=== PATIENT | female | born 1960 | race African-American/Black ===

== ENCOUNTER 2016-12-02 17:53 | Emergency (ER) | payer MEDICAID ==
[~2016-12-02] VITALS: Ht 162.6 cm; Wt 111.0 kg
[~2016-12-02 17:53] MED LIST: CALC260T6 PO; GLYB2.5 PO; HYDR-3965 PO; IPRA3AMP4 IH; IPRA4AER IH; LISI-662 PO; MOME13HF IH; MONT10TA21 PO; OMEP20 PO; PRED20 PO; THEO200T39 PO
[2016-12-02] MEDS ORDERED: PredniSONE 20 MG TABLET PO ONE (22:30)
[2016-12-02] MEDS ORDERED: IPRATROPIUM BROMIDE 0.5 MG/2.5 ML NEB SOLUTION NEB ONE (22:30)
[2016-12-02] MEDS ORDERED: ALBUTEROL SULFATE 2.5 MG/0.5 ML NEB SOLUTION NEB ONE (22:30)
[2016-12-02 23:45] VITALS: BP 147/73
[2016-12-03] MEDS ORDERED: ALBUTEROL SULFATE HFA 90 MCG/PUFF 8 GM INHALER IH ONE
[2016-12-03 09:36] LABS: GLUCOSE,POINT OF CARE 117 MG/DL (70-110)
== END 2016-12-03 00:11 | disposition home or self-care (01) ==
LOC: EMS 22:04
DX: J45.901 Unspecified asthma with (acute) exacerbation (principal); J18.9 Pneumonia, unspecified organism; M25.552 Pain in left hip; J44.9 Chronic obstructive pulmonary disease, unspecified; I11.0 Hypertensive heart disease with heart failure; I50.9 Heart failure, unspecified; E11.9 Type 2 diabetes mellitus without complications
CPT/HCPCS: 71010; 73503; 82962; 93005; 94640; 99284; J7512; J7613; J3535

== ENCOUNTER 2017-03-16 18:40 | Inpatient (IN) | payer MEDICAID ==
[~2017-03-16] VITALS: Ht 162.6 cm; Wt 99.0 kg
[~2017-03-16 18:40] MED LIST changes: -PRED20 PO
[2017-03-16 19:02] LABS: GLUCOSE,POINT OF CARE 119 MG/DL (70-110)
[2017-03-16 20:32] LABS: BASOPHILS % (AUTO) 0.3 % (0.0-2.0); EOSINOPHILS % (AUTO) 0.2 % (1.0-6.0); HEMATOCRIT 38.8 % (36-46); HEMOGLOBIN 12.2 g/dL (12.0-16.0); LYMPHOCYTES # (AUTO) 2.3 K/uL (1.0-4.8); LYMPHOCYTES % (AUTO) 9.9 % (22.0-44.0); MEAN CORPUSCULAR HEMOGLOBIN 26.8 pg (26.0-34.0); MEAN CORPUSCULAR HGB CONC 31.5 G/dL (31.0-37.0); MEAN CORPUSCULAR VOLUME 85 fL (80-100); MONOCYTES # (AUTO) 0.7 K/uL (0.1-1.0); NEUTROPHILS # (AUTO) 20.4 K/uL (1.8-7.7); PLATELET COUNT (AUTO) 361 K/uL (150-450); RED BLOOD CELL COUNT(AUTO) 4.56 MIL/uL (4.00-5.20); RED CELL DISTRIBUTION WIDTH 14.8 % (11.5-14.5); WHITE BLOOD COUNT (AUTO) 23.6 K/uL (4.5-11.0)
[2017-03-16 20:44] LABS: CALCIUM, TOTAL 9.8 mg/dL (8.8-10.5); CREATININE 1.37 mg/dL (0.60-1.30); NEUTROPHILS % (AUTO) 86.6 % (40.0-70.0); POTASSIUM 3.4 mmol/L (3.5-5.1)
[2017-03-16 20:51] LABS: ALBUMIN 3.8 g/dL (3.4-5.0); BILIRUBIN,TOTAL 1.5 mg/dL (0.1-1.0); TOTAL PROTEIN, SERUM 8.1 g/dL (6.4-8.2)
[2017-03-16] MEDS ORDERED: ALBUTEROL SULFATE 2.5 MG/0.5 ML NEB SOLUTION NEB ONE (22:45)
[2017-03-16] MEDS ORDERED: IPRATROPIUM BROMIDE 0.5 MG/2.5 ML NEB SOLUTION NEB ONE ×2 (22:45→23:15)
[2017-03-16 22:47] LABS: APPEARANCE,URINE CLOUDY (CLEAR); GLUCOSE, URINE (UA) NEGATIVE (NEGATIVE); KETONES,URINE NEGATIVE (NEGATIVE); LEUKOCYTE ESTERASE ,URINE TRACE (NEGATIVE); OCCULT BLOOD,URINE NEGATIVE (NEGATIVE); PROTEIN,URINE NEGATIVE (NEGATIVE)
[2017-03-16] MEDS ORDERED: PredniSONE 20 MG TABLET PO ONE (23:00)
[2017-03-16] MEDS ORDERED: CefTRIAXone 1 GM/DEXTROSE 50 ML IV ONE (23:00)
[2017-03-16] MEDS ORDERED: AZITHROMYCIN 500 MG/NS 250 ML IV ONE (23:00)
[2017-03-16 23:05] LABS: RBC,URINE 0-2 /HPF (0-2)
[2017-03-16 23:06] LABS: SQUAMOUS EPITHELIAL CELL,UR Many /LPF (None Seen)
[2017-03-16] MEDS ORDERED: 0.9% SODIUM CHLORIDE 5 ML NEB SOLUTION NEB ONE (23:13)
[2017-03-16] MEDS ORDERED: 0.9% SODIUM CHLORIDE 10 ML SYRINGE IVP PRN (23:15)
[2017-03-16] MEDS ORDERED: ALBUTEROL SULFATE 5 MG/ML 20 ML NEB SOLN [BULK] NEB ONE (23:15)
[2017-03-16] MEDS ORDERED: ACETAMINOPHEN 325 MG TABLET PO PRN (23:15)
[2017-03-17] VITALS (8 sets, daily range): BP systolic 113–147; BP diastolic 50–80
[2017-03-17] MEDS ORDERED: ALBUTEROL SULFATE 2.5 MG/0.5 ML NEB SOLUTION NEB SCH (03:00)
[2017-03-17] MEDS ORDERED: IPRATROPIUM BROMIDE 0.5 MG/2.5 ML NEB SOLUTION NEB SCH (03:00)
[2017-03-17] MEDS ORDERED: -PHARMACY VACCINE NOTE- MISC ONE ×2 (03:30)
[2017-03-17] MEDS ORDERED: MISC MED-CONVERTED FROM AMBULATORY (Ipratropium/Albuterol Sulfate (Duoneb 2.5-0.5 Mg/3 Ml IH PRN (06:15)
[2017-03-17 06:38] LABS: EOSINOPHILS % (AUTO) 0 % (1.0-6.0); HEMATOCRIT 35.5 % (36-46); LYMPHOCYTES # (AUTO) 0.4 K/uL (1.0-4.8); LYMPHOCYTES % (AUTO) 2.1 % (22.0-44.0); MEAN CORPUSCULAR HEMOGLOBIN 26.6 pg (26.0-34.0); MEAN CORPUSCULAR HGB CONC 30.8 G/dL (31.0-37.0); MEAN CORPUSCULAR VOLUME 86 fL (80-100); MONOCYTES # (AUTO) 0.2 K/uL (0.1-1.0); MONOCYTES % (AUTO) 0.9 % (2.0-9.0); NEUTROPHILS # (AUTO) 20.1 K/uL (1.8-7.7); PLATELET COUNT (AUTO) 347 K/uL (150-450); RED BLOOD CELL COUNT(AUTO) 4.12 MIL/uL (4.00-5.20); RED CELL DISTRIBUTION WIDTH 15.1 % (11.5-14.5); WHITE BLOOD COUNT (AUTO) 20.7 K/uL (4.5-11.0)
[2017-03-17] MEDS ORDERED: IPRATROPIUM BROMIDE 0.5 MG/2.5 ML NEB SOLUTION NEB PRN (06:45)
[2017-03-17] MEDS ORDERED: ALBUTEROL SULFATE 2.5 MG/0.5 ML NEB SOLUTION NEB PRN (06:45)
[2017-03-17] MEDS ORDERED: DEXTROSE 50%-WATER 25 GM/50 ML SYRINGE IVP PRN (07:00)
[2017-03-17 07:09] LABS: ALBUMIN 3.3 g/dL (3.4-5.0); BILIRUBIN,TOTAL 1.1 mg/dL (0.1-1.0); CALCIUM, TOTAL 9.1 mg/dL (8.8-10.5); CREATININE 1.37 mg/dL (0.60-1.30); POTASSIUM 3.4 mmol/L (3.5-5.1); TOTAL PROTEIN, SERUM 7.5 g/dL (6.4-8.2)
[2017-03-17] MEDS: IPRATROPIUM BROMIDE 0.5 MG/2.5 ML NEB SOLUTION NEB SCH ×3 (07:35→20:34)
[2017-03-17] MEDS: ALBUTEROL SULFATE 2.5 MG/0.5 ML NEB SOLUTION NEB SCH ×3 (07:35→20:34)
[2017-03-17] MEDS: OMEPRAZOLE 20 MG CAPSULE PO SCH (08:19)
[2017-03-17] MEDS: MONTELUKAST SODIUM 10 MG TABLET PO SCH (08:19)
[2017-03-17] MEDS: HYDROCODONE/ACETAMINOPHEN 5-325 MG TABLET PO PRN ×3 (08:19→22:18)
[2017-03-17] MEDS: MethylPREDNISolone SOD SUCC 125 MG/2 ML VIAL IVP SCH ×2 (08:19→17:25)
[2017-03-17] MEDS: LISINOPRIL 20 MG TABLET PO SCH (08:19)
[2017-03-17] MEDS: AZITHROMYCIN 250 MG TABLET PO SCH (08:19)
[2017-03-17] MEDS ORDERED: CALCIUM CARBONATE 648 MG TABLET PO SCH (09:00)
[2017-03-17] MEDS ORDERED: PANTOPRAZOLE SODIUM 40 MG DR TABLET PO SCH (09:00)
[2017-03-17] MEDS ORDERED: FORMOTEROL IH SCH (09:00)
[2017-03-17] MEDS ORDERED: MOMETASONE IH SCH (09:00)
[2017-03-17 12:50] LABS: GLUCOSE COMMENT 1 Received Meds; GLUCOSE,POINT OF CARE 235 MG/DL (70-110)
[2017-03-17] MEDS ORDERED: ONDANSETRON HCL 4 MG/2 ML VIAL IVP PRN (13:15)
[2017-03-17] MEDS: INSULIN ASPART 100 UNITS/ML SQ PRN ×3 (13:16→22:22)
[2017-03-17] MEDS ORDERED: POTASSIUM CHLORIDE 20 MEQ ER TABLET PO ONE (16:30)
[2017-03-17] MEDS: CALCIUM CARBONATE 500 MG CHEWABLE TABLET CHEW SCH (22:17)
[2017-03-17] MEDS: CefTRIAXone 1 GM/DEXTROSE 50 ML IV SCH (22:31)
[2017-03-18] MEDS: MethylPREDNISolone SOD SUCC 125 MG/2 ML VIAL IVP SCH ×3 (00:08→17:34)
[2017-03-18 04:00] VITALS: BP 127/68
[2017-03-18 06:14] LABS: EOSINOPHILS % (AUTO) 0 % (1.0-6.0); HEMATOCRIT 34.2 % (36-46); HEMOGLOBIN 10.6 g/dL (12.0-16.0); LYMPHOCYTES # (AUTO) 1.1 K/uL (1.0-4.8); LYMPHOCYTES % (AUTO) 6.5 % (22.0-44.0); MEAN CORPUSCULAR HEMOGLOBIN 26.7 pg (26.0-34.0); MEAN CORPUSCULAR VOLUME 86 fL (80-100); MONOCYTES # (AUTO) 0.3 K/uL (0.1-1.0); MONOCYTES % (AUTO) 1.5 % (2.0-9.0); NEUTROPHILS # (AUTO) 15.9 K/uL (1.8-7.7); PLATELET COUNT (AUTO) 362 K/uL (150-450); RED BLOOD CELL COUNT(AUTO) 3.98 MIL/uL (4.00-5.20); RED CELL DISTRIBUTION WIDTH 15.3 % (11.5-14.5); WHITE BLOOD COUNT (AUTO) 17.3 K/uL (4.5-11.0)
[2017-03-18] MEDS: INSULIN ASPART 100 UNITS/ML SQ PRN ×4 (06:25→21:29)
[2017-03-18 06:31] LABS: ALBUMIN 3.2 g/dL (3.4-5.0); BILIRUBIN,TOTAL 0.3 mg/dL (0.1-1.0); CALCIUM, TOTAL 9.4 mg/dL (8.8-10.5); CREATININE 1.19 mg/dL (0.60-1.30); MAGNESIUM 2.2 mg/dL (1.80-2.40); POTASSIUM 4.8 mmol/L (3.5-5.1); TOTAL PROTEIN, SERUM 7.5 g/dL (6.4-8.2)
[2017-03-18 07:08] VITALS: BP 108/57
[2017-03-18 07:17] LABS: GLUCOSE COMMENT 1 Received Meds; GLUCOSE,POINT OF CARE 188 MG/DL (70-110)
[2017-03-18 07:17] LABS: GLUCOSE COMMENT 1 Received Meds; GLUCOSE,POINT OF CARE 199 MG/DL (70-110)
[2017-03-18 07:17] LABS: GLUCOSE COMMENT 1 Received Meds; GLUCOSE,POINT OF CARE 257 MG/DL (70-110)
[2017-03-18] MEDS: ALBUTEROL SULFATE 2.5 MG/0.5 ML NEB SOLUTION NEB SCH ×3 (09:00→20:12)
[2017-03-18] MEDS: IPRATROPIUM BROMIDE 0.5 MG/2.5 ML NEB SOLUTION NEB SCH ×3 (09:00→20:12)
[2017-03-18] MEDS: OMEPRAZOLE 20 MG CAPSULE PO SCH (09:06)
[2017-03-18] MEDS: AZITHROMYCIN 250 MG TABLET PO SCH (09:06)
[2017-03-18] MEDS: LISINOPRIL 20 MG TABLET PO SCH (09:06)
[2017-03-18] MEDS: MONTELUKAST SODIUM 10 MG TABLET PO SCH (09:06)
[2017-03-18] MEDS: CALCIUM CARBONATE 500 MG CHEWABLE TABLET CHEW SCH ×2 (09:06→21:28)
[2017-03-18] MEDS: HYDROCODONE/ACETAMINOPHEN 5-325 MG TABLET PO PRN ×2 (09:22→21:28)
[2017-03-18 11:53] VITALS: BP 118/52
[2017-03-18 16:52] LABS: GLUCOSE COMMENT 1 Received Meds; GLUCOSE,POINT OF CARE 220 MG/DL (70-110)
[2017-03-18 19:24] VITALS: BP 133/80
[2017-03-18 23:22] VITALS: BP 131/53
[2017-03-19] MEDS: MethylPREDNISolone SOD SUCC 125 MG/2 ML VIAL IVP SCH ×3 (00:17→17:40)
[2017-03-19] MEDS: CefTRIAXone 1 GM/DEXTROSE 50 ML IV SCH ×2 (00:17→20:59)
[2017-03-19 04:30] VITALS: BP 145/84
[2017-03-19] MEDS: HYDROCODONE/ACETAMINOPHEN 5-325 MG TABLET PO PRN ×2 (06:28→20:48)
[2017-03-19] MEDS: INSULIN ASPART 100 UNITS/ML SQ PRN ×4 (06:29→20:55)
[2017-03-19 07:08] VITALS: BP 129/64
[2017-03-19] MEDS: ALBUTEROL SULFATE 2.5 MG/0.5 ML NEB SOLUTION NEB SCH ×3 (08:46→19:27)
[2017-03-19] MEDS: IPRATROPIUM BROMIDE 0.5 MG/2.5 ML NEB SOLUTION NEB SCH ×3 (08:46→19:27)
[2017-03-19] MEDS: OMEPRAZOLE 20 MG CAPSULE PO SCH (08:56)
[2017-03-19] MEDS: AZITHROMYCIN 250 MG TABLET PO SCH (08:56)
[2017-03-19] MEDS: CALCIUM CARBONATE 500 MG CHEWABLE TABLET CHEW SCH ×2 (08:56→20:47)
[2017-03-19] MEDS: MONTELUKAST SODIUM 10 MG TABLET PO SCH (08:56)
[2017-03-19] MEDS: DULoxetine HCL 20 MG CAPSULE PO SCH (08:56)
[2017-03-19] MEDS: LISINOPRIL 20 MG TABLET PO SCH (08:56)
[2017-03-19 11:28] LABS: GLUCOSE COMMENT 1 Received Meds; GLUCOSE,POINT OF CARE 188 MG/DL (70-110)
[2017-03-19 11:28] LABS: GLUCOSE COMMENT 1 Received Meds; GLUCOSE,POINT OF CARE 154 MG/DL (70-110)
[2017-03-19 11:32] LABS: GLUCOSE COMMENT 1 Received Meds; GLUCOSE,POINT OF CARE 214 MG/DL (70-110)
[2017-03-19 11:37] VITALS: BP 132/70
[2017-03-19 15:16] VITALS: BP 140/73
[2017-03-19] MEDS ORDERED: BARIUM SULFATE 0.1% SUSPENSION 450 ML BOTTLE ONE (15:40)
[2017-03-19] MEDS ORDERED: IOVERSOL 350 MG/ML 100 ML VIAL ONE (15:40)
[2017-03-19] MEDS ORDERED: SODIUM CHLORIDE 0.9% 100 ML ONE (15:41)
[2017-03-19 17:12] LABS: GLUCOSE COMMENT 1 Received Meds; GLUCOSE,POINT OF CARE 176 MG/DL (70-110)
[2017-03-19 18:07] LABS: GLUCOSE COMMENT 1 Received Meds; GLUCOSE,POINT OF CARE 177 MG/DL (70-110)
[2017-03-19 19:22] VITALS: BP 137/75
[2017-03-19 23:17] VITALS: BP 153/88
[2017-03-20] MEDS ORDERED: 0.9% SODIUM CHLORIDE 10 ML SYRINGE IVP PRN (00:30)
[2017-03-20] MEDS: HEPARIN SODIUM,PORCINE 5,000 UNITS/ML VIAL SQ SCH ×4 (00:54→22:29)
[2017-03-20] MEDS: MethylPREDNISolone SOD SUCC 125 MG/2 ML VIAL IVP SCH ×2 (00:55→10:44)
[2017-03-20 03:52] LABS: GLUCOSE COMMENT 1 Received Meds; GLUCOSE,POINT OF CARE 205 MG/DL (70-110)
[2017-03-20 04:22] VITALS: BP 151/70
[2017-03-20] MEDS: INSULIN ASPART 100 UNITS/ML SQ PRN ×4 (06:01→20:38)
[2017-03-20 06:23] LABS: BASOPHILS % (AUTO) 0.3 % (0.0-2.0); EOSINOPHILS % (AUTO) 0.1 % (1.0-6.0); HEMATOCRIT 35.4 % (36-46); HEMOGLOBIN 10.8 g/dL (12.0-16.0); LYMPHOCYTES # (AUTO) 1.3 K/uL (1.0-4.8); MEAN CORPUSCULAR HEMOGLOBIN 26.5 pg (26.0-34.0); MEAN CORPUSCULAR HGB CONC 30.6 G/dL (31.0-37.0); MEAN CORPUSCULAR VOLUME 87 fL (80-100); MONOCYTES # (AUTO) 0.1 K/uL (0.1-1.0); NEUTROPHILS # (AUTO) 11.6 K/uL (1.8-7.7); PLATELET COUNT (AUTO) 430 K/uL (150-450); RED BLOOD CELL COUNT(AUTO) 4.08 MIL/uL (4.00-5.20); RED CELL DISTRIBUTION WIDTH 15.4 % (11.5-14.5); WHITE BLOOD COUNT (AUTO) 13.1 K/uL (4.5-11.0)
[2017-03-20 06:37] LABS: ALANINE AMINOTRANSFERASE 23 U/L (12-78); ALBUMIN 3.3 g/dL (3.4-5.0); ANION GAP 9 mmol/L (8-16); ASPARTATE AMINOTRANSFERASE 9 U/L (15-37); BILIRUBIN,TOTAL 0.4 mg/dL (0.1-1.0); CALCIUM, TOTAL 9.5 mg/dL (8.8-10.5); CARBON DIOXIDE 27 mmol/L (22-29); CHLORIDE 102 mmol/L (98-107); CREATININE 0.97 mg/dL (0.60-1.30); GLOMERULAR FILTR. RATE CALC > 60 mL/min (>60); POTASSIUM 4.3 mmol/L (3.5-5.1); SODIUM SERUM 138 mmol/L (136-145); TOTAL PROTEIN, SERUM 7.3 g/dL (6.4-8.2); UREA NITROGEN, BLOOD 22 mg/dL (7-18)
[2017-03-20 06:45] LABS: NEUTROPHILS % (AUTO) 88.6 % (40.0-70.0)
[2017-03-20 07:40] VITALS: BP 141/80
[2017-03-20] MEDS: CALCIUM CARBONATE 500 MG CHEWABLE TABLET CHEW SCH ×2 (08:20→20:30)
[2017-03-20] MEDS: MONTELUKAST SODIUM 10 MG TABLET PO SCH (08:20)
[2017-03-20] MEDS: OMEPRAZOLE 20 MG CAPSULE PO SCH (08:20)
[2017-03-20] MEDS: LISINOPRIL 20 MG TABLET PO SCH (08:20)
[2017-03-20] MEDS: AZITHROMYCIN 250 MG TABLET PO SCH (08:20)
[2017-03-20] MEDS: HYDROCODONE/ACETAMINOPHEN 5-325 MG TABLET PO PRN ×2 (08:26→16:12)
[2017-03-20] MEDS: ALBUTEROL SULFATE 2.5 MG/0.5 ML NEB SOLUTION NEB SCH ×3 (09:08→19:47)
[2017-03-20] MEDS: IPRATROPIUM BROMIDE 0.5 MG/2.5 ML NEB SOLUTION NEB SCH ×3 (09:08→19:47)
[2017-03-20] MEDS: DULoxetine HCL 20 MG CAPSULE PO SCH (10:45)
[2017-03-20 11:19] VITALS: BP 126/67
[2017-03-20 14:33] LABS: GLUCOSE COMMENT 1 Received Meds; GLUCOSE,POINT OF CARE 198 MG/DL (70-110)
[2017-03-20 14:33] LABS: GLUCOSE COMMENT 1 Received Meds; GLUCOSE,POINT OF CARE 195 MG/DL (70-110)
[2017-03-20 15:19] VITALS: BP 136/74
[2017-03-20 19:20] VITALS: BP 134/71
[2017-03-20] MEDS: PredniSONE 20 MG TABLET PO SCH (20:32)
[2017-03-20] MEDS ORDERED: SODIUM CHLORIDE 0.9% 100 ML ONE (20:41)
[2017-03-20 20:52] LABS: GLUCOSE,POINT OF CARE 170 MG/DL (70-110)
[2017-03-20 20:52] LABS: GLUCOSE,POINT OF CARE 276 MG/DL (70-110)
[2017-03-20] MEDS: CefTRIAXone 1 GM/DEXTROSE 50 ML IV SCH (22:22)
[2017-03-20 23:57] VITALS: BP 161/97
[2017-03-21 04:13] VITALS: BP 151/78
[2017-03-21] MEDS: INSULIN ASPART 100 UNITS/ML SQ PRN ×2 (06:08→12:21)
[2017-03-21 07:00] VITALS: BP 152/94
[2017-03-21] MEDS: ALBUTEROL SULFATE 2.5 MG/0.5 ML NEB SOLUTION NEB SCH ×2 (07:49→14:00)
[2017-03-21] MEDS: IPRATROPIUM BROMIDE 0.5 MG/2.5 ML NEB SOLUTION NEB SCH ×2 (07:49→14:00)
[2017-03-21] MEDS: HYDROCODONE/ACETAMINOPHEN 5-325 MG TABLET PO PRN (07:51)
[2017-03-21] MEDS: DULoxetine HCL 20 MG CAPSULE PO SCH (08:25)
[2017-03-21] MEDS: PredniSONE 20 MG TABLET PO SCH (08:25)
[2017-03-21] MEDS: CALCIUM CARBONATE 500 MG CHEWABLE TABLET CHEW SCH (08:25)
[2017-03-21] MEDS: LISINOPRIL 20 MG TABLET PO SCH (08:25)
[2017-03-21] MEDS: AZITHROMYCIN 250 MG TABLET PO SCH (08:25)
[2017-03-21] MEDS: MONTELUKAST SODIUM 10 MG TABLET PO SCH (08:25)
[2017-03-21] MEDS: OMEPRAZOLE 20 MG CAPSULE PO SCH (08:26)
[2017-03-21] MEDS: HEPARIN SODIUM,PORCINE 5,000 UNITS/ML VIAL SQ SCH (08:31)
[2017-03-21 11:06] VITALS: BP 157/85
[2017-03-21 12:07] LABS: GLUCOSE COMMENT 1 Received Meds; GLUCOSE,POINT OF CARE 171 MG/DL (70-110)
[2017-03-21] MEDS ORDERED: DULO20CA30 PO (13:43)
[2017-03-21] MEDS ORDERED: AZIT250T6 PO (13:43)
[2017-03-21] MEDS ORDERED: PRED20 PO (13:50)
[2017-03-21 17:17] LABS: GLUCOSE COMMENT 1 Received Meds; GLUCOSE,POINT OF CARE 164 MG/DL (70-110)
== END 2017-03-21 14:50 | disposition home or self-care (01) | DRG 720 ==
LOC: EMS 18:43 → 5N 03-17 02:06 → UNDOADMIN 03-17 02:24
PROVIDERS: ADMIT Family Medicine; ATTEND Family Medicine
DX: A41.9 Sepsis, unspecified organism (principal); J96.20 Acute and chronic respiratory failure, unspecified whether with hypoxia or hypercapnia; I13.0 Hypertensive heart and chronic kidney disease with heart failure and stage 1 through stage 4 chronic kidney disease, or unspecified chronic kidney disease; J18.9 Pneumonia, unspecified organism; J44.0 Chronic obstructive pulmonary disease with (acute) lower respiratory infection; E11.22 Type 2 diabetes mellitus with diabetic chronic kidney disease; I50.9 Heart failure, unspecified; J45.901 Unspecified asthma with (acute) exacerbation; J44.1 Chronic obstructive pulmonary disease with (acute) exacerbation; N18.9 Chronic kidney disease, unspecified; F31.9 Bipolar disorder, unspecified; F41.9 Anxiety disorder, unspecified; Z79.899 Other long term (current) drug therapy
CPT/HCPCS: 71020; 71260; 72193; 74160; 80307; 82962; 83605; 83735; 87040; 93005; 94640; 94644; 96374; 96375; 99285; J0456; J0696; J1644; J2405; J2930; J7050

== ENCOUNTER 2017-06-02 18:54 | Inpatient (IN) | payer MEDICAID ==
[~2017-06-02] VITALS: Ht 162.6 cm; Wt 91.9 kg
[~2017-06-02 18:54] MED LIST changes: +AZIT250T6 PO; +DULO20CA30 PO; +PRED20 PO
[2017-06-02 19:27] LABS: GLUCOSE,POINT OF CARE 141 MG/DL (70-110)
[2017-06-02] MEDS ORDERED: ALBUTEROL SULFATE 2.5 MG/0.5 ML NEB SOLUTION NEB ONE (19:30)
[2017-06-02] MEDS ORDERED: 0.9% SODIUM CHLORIDE 5 ML NEB SOLUTION NEB ONE (19:32)
[2017-06-02 20:08] LABS: BASOPHILS % (AUTO) 0.4 % (0.0-2.0); EOSINOPHILS % (AUTO) 0.8 % (1.0-6.0); HEMATOCRIT 40.7 % (36-46); HEMOGLOBIN 13.2 g/dL (12.0-16.0); LYMPHOCYTES # (AUTO) 2.6 K/uL (1.0-4.8); LYMPHOCYTES % (AUTO) 24.1 % (22.0-44.0); MEAN CORPUSCULAR HEMOGLOBIN 27.5 pg (26.0-34.0); MEAN CORPUSCULAR HGB CONC 32.3 G/dL (31.0-37.0); MEAN CORPUSCULAR VOLUME 85 fL (80-100); MONOCYTES # (AUTO) 0.6 K/uL (0.1-1.0); MONOCYTES % (AUTO) 5.7 % (2.0-9.0); NEUTROPHILS # (AUTO) 7.4 K/uL (1.8-7.7); PLATELET COUNT (AUTO) 495 K/uL (150-450); RED CELL DISTRIBUTION WIDTH 14.5 % (11.5-14.5); WHITE BLOOD COUNT (AUTO) 10.7 K/uL (4.5-11.0)
[2017-06-02 20:20] LABS: CALCIUM, TOTAL 10.8 mg/dL (8.8-10.5); CREATININE 1.54 mg/dL (0.60-1.30); POTASSIUM 3.2 mmol/L (3.5-5.1)
[2017-06-02 20:37] LABS: ALBUMIN 4.1 g/dL (3.4-5.0); BILIRUBIN,TOTAL 0.5 mg/dL (0.1-1.0); TOTAL PROTEIN, SERUM 8.2 g/dL (6.4-8.2)
[2017-06-02] MEDS ORDERED: ALBUTEROL SULFATE 5 MG/ML 20 ML NEB SOLN [BULK] NEB ONE (21:00)
[2017-06-02] MEDS ORDERED: IPRATROPIUM BROMIDE 0.5 MG/2.5 ML NEB SOLUTION NEB ONE (21:00)
[2017-06-02] MEDS ORDERED: SODIUM CHLORIDE 0.9% 1,000 ML IV ONE (21:00)
[2017-06-02] MEDS ORDERED: MethylPREDNISolone SOD SUCC 125 MG/2 ML VIAL IVP ONE (21:00)
[2017-06-02] MEDS ORDERED: POTASSIUM CHLORIDE 10% 40 MEQ/30 ML LIQUID UDCUP ONE (22:56)
[2017-06-02] MEDS ORDERED: POTASSIUM CHLORIDE 10% 40 MEQ/30 ML LIQUID UDCUP PO ONE (23:00)
[2017-06-02] MEDS ORDERED: OXYGEN THERAPY IH SCH (23:00)
[2017-06-02] MEDS ORDERED: ONDANSETRON HCL 4 MG/2 ML VIAL IVP PRN (23:00)
[2017-06-02] MEDS ORDERED: 0.9% SODIUM CHLORIDE 10 ML SYRINGE IVP PRN (23:00)
[2017-06-02 23:15] VITALS: BP 132/83
[2017-06-02] MEDS: ALBUTEROL SULFATE 2.5 MG/0.5 ML NEB SOLUTION NEB SCH (23:29)
[2017-06-02] MEDS: IPRATROPIUM BROMIDE 0.5 MG/2.5 ML NEB SOLUTION NEB SCH (23:29)
[2017-06-03] MEDS: ACETAMINOPHEN 325 MG TABLET PO PRN ×2 (00:47→08:00)
[2017-06-03] MEDS: IPRATROPIUM BROMIDE 0.5 MG/2.5 ML NEB SOLUTION NEB SCH ×5 (03:14→23:44)
[2017-06-03] MEDS: ALBUTEROL SULFATE 2.5 MG/0.5 ML NEB SOLUTION NEB SCH ×6 (03:14→23:44)
[2017-06-03 05:47] LABS: EOSINOPHILS % (AUTO) 0.1 % (1.0-6.0); HEMATOCRIT 36.2 % (36-46); HEMOGLOBIN 11.6 g/dL (12.0-16.0); LYMPHOCYTES # (AUTO) 0.5 K/uL (1.0-4.8); LYMPHOCYTES % (AUTO) 4.5 % (22.0-44.0); MEAN CORPUSCULAR HEMOGLOBIN 27.5 pg (26.0-34.0); MEAN CORPUSCULAR HGB CONC 32.1 G/dL (31.0-37.0); MEAN CORPUSCULAR VOLUME 86 fL (80-100); MONOCYTES % (AUTO) 0.3 % (2.0-9.0); NEUTROPHILS # (AUTO) 9.8 K/uL (1.8-7.7); PLATELET COUNT (AUTO) 448 K/uL (150-450); RED BLOOD CELL COUNT(AUTO) 4.23 MIL/uL (4.00-5.20); RED CELL DISTRIBUTION WIDTH 14.7 % (11.5-14.5); WHITE BLOOD COUNT (AUTO) 10.3 K/uL (4.5-11.0)
[2017-06-03 05:52] LABS: NEUTROPHILS % (AUTO) 95.1 % (40.0-70.0)
[2017-06-03 06:09] LABS: ALBUMIN 3.7 g/dL (3.4-5.0); BILIRUBIN,TOTAL 0.5 mg/dL (0.1-1.0); CALCIUM, TOTAL 9.8 mg/dL (8.8-10.5); CREATININE 1.45 mg/dL (0.60-1.30); POTASSIUM 3.3 mmol/L (3.5-5.1); TOTAL PROTEIN, SERUM 7.4 g/dL (6.4-8.2)
[2017-06-03 06:20] VITALS: BP 122/71
[2017-06-03 07:45] VITALS: BP 138/84
[2017-06-03 08:57] LABS: GLUCOSE,POINT OF CARE 219 MG/DL (70-110)
[2017-06-03] MEDS ORDERED: ENOXAPARIN SODIUM 40 MG/0.4 ML PF SYRINGE SQ SCH (09:00)
[2017-06-03] MEDS ORDERED: DEXTROSE 50%-WATER 25 GM/50 ML SYRINGE IVP PRN (09:15)
[2017-06-03] MEDS ORDERED: POTASSIUM CHL 10 MEQ/WATER 50 ML IV PRN (09:15)
[2017-06-03] MEDS ORDERED: POTASSIUM CHLORIDE 20 MEQ ER TABLET PO PRN (09:15)
[2017-06-03] MEDS: LISINOPRIL 20 MG TABLET PO SCH (09:44)
[2017-06-03] MEDS: CALCIUM CARBONATE 648 MG TABLET PO SCH ×2 (09:44→21:16)
[2017-06-03] MEDS: DULoxetine HCL 20 MG CAPSULE PO SCH (09:44)
[2017-06-03] MEDS: MONTELUKAST SODIUM 10 MG TABLET PO SCH (09:44)
[2017-06-03] MEDS: OMEPRAZOLE 20 MG CAPSULE PO SCH (09:44)
[2017-06-03] MEDS: HYDROCODONE/ACETAMINOPHEN 5-325 MG TABLET PO PRN ×2 (09:45→16:07)
[2017-06-03] MEDS: INSULIN ASPART 100 UNITS/ML SQ PRN ×3 (11:08→21:57)
[2017-06-03 11:41] VITALS: BP 135/76
[2017-06-03 12:28] LABS: GLUCOSE COMMENT 1 Received Meds; GLUCOSE,POINT OF CARE 350 MG/DL (70-110)
[2017-06-03] MEDS ORDERED: IOVERSOL 350 MG/ML 150 ML VIAL ONE (13:30)
[2017-06-03] MEDS ORDERED: SODIUM CHLORIDE 0.9% 100 ML ONE (13:30)
[2017-06-03 15:45] VITALS: BP 97/55
[2017-06-03] MEDS ORDERED: ACETAMINOPHEN 650 MG/20.3 ML SOLUTION UDCUP PO PRN (15:45)
[2017-06-03] MEDS: MethylPREDNISolone SOD SUCC 40 MG/ML VIAL IVP SCH ×2 (15:53→23:55)
[2017-06-03] MEDS ORDERED: 0.9% SODIUM CHLORIDE 5 ML NEB SOLUTION NEB ONE (16:19)
[2017-06-03 17:47] LABS: GLUCOSE COMMENT 1 Received Meds; GLUCOSE,POINT OF CARE 164 MG/DL (70-110)
[2017-06-03] MEDS ORDERED: IPRATROPIUM BROMIDE 0.5 MG/2.5 ML NEB SOLUTION NEB SCH (19:00)
[2017-06-03 19:16] VITALS: BP 128/77
[2017-06-03] MEDS ORDERED: 0.9% SODIUM CHLORIDE 10 ML SYRINGE IVP PRN (21:30)
[2017-06-03] MEDS ORDERED: -PHARMACY VACCINE NOTE- MISC ONE ×2 (22:15)
[2017-06-03 22:17] LABS: CALCIUM, TOTAL 9.7 mg/dL (8.8-10.5); CREATININE 1.39 mg/dL (0.60-1.30); POTASSIUM 4.6 mmol/L (3.5-5.1)
[2017-06-03 22:18] LABS: GLUCOSE COMMENT 1 Received Meds; GLUCOSE,POINT OF CARE 209 MG/DL (70-110)
[2017-06-03 23:51] VITALS: BP 118/66
[2017-06-04] MEDS: HEPARIN SODIUM,PORCINE 5,000 UNITS/ML VIAL SQ SCH ×4 (00:02→22:32)
[2017-06-04] MEDS: ALBUTEROL SULFATE 2.5 MG/0.5 ML NEB SOLUTION NEB SCH ×6 (03:00→23:27)
[2017-06-04 05:09] VITALS: BP 134/76
[2017-06-04 06:48] LABS: GLUCOSE,POINT OF CARE 135 MG/DL (70-110)
[2017-06-04 06:54] LABS: EOSINOPHILS % (AUTO) 0.1 % (1.0-6.0); HEMATOCRIT 34.5 % (36-46); HEMOGLOBIN 11.1 g/dL (12.0-16.0); LYMPHOCYTES # (AUTO) 1.4 K/uL (1.0-4.8); LYMPHOCYTES % (AUTO) 8.5 % (22.0-44.0); MEAN CORPUSCULAR HEMOGLOBIN 27.7 pg (26.0-34.0); MEAN CORPUSCULAR HGB CONC 32.2 G/dL (31.0-37.0); MEAN CORPUSCULAR VOLUME 86 fL (80-100); MONOCYTES # (AUTO) 0.6 K/uL (0.1-1.0); MONOCYTES % (AUTO) 3.7 % (2.0-9.0); NEUTROPHILS # (AUTO) 14.3 K/uL (1.8-7.7); PLATELET COUNT (AUTO) 415 K/uL (150-450); RED BLOOD CELL COUNT(AUTO) 4.01 MIL/uL (4.00-5.20); RED CELL DISTRIBUTION WIDTH 14.3 % (11.5-14.5); WHITE BLOOD COUNT (AUTO) 16.3 K/uL (4.5-11.0)
[2017-06-04 07:25] LABS: NEUTROPHILS % (AUTO) 87.7 % (40.0-70.0)
[2017-06-04] MEDS: IPRATROPIUM BROMIDE 0.5 MG/2.5 ML NEB SOLUTION NEB SCH ×5 (07:30→23:27)
[2017-06-04] MEDS: MethylPREDNISolone SOD SUCC 40 MG/ML VIAL IVP SCH ×3 (08:03→22:31)
[2017-06-04] MEDS: DULoxetine HCL 20 MG CAPSULE PO SCH (08:04)
[2017-06-04] MEDS: OMEPRAZOLE 20 MG CAPSULE PO SCH (08:04)
[2017-06-04] MEDS: MONTELUKAST SODIUM 10 MG TABLET PO SCH (08:04)
[2017-06-04] MEDS: CALCIUM CARBONATE 648 MG TABLET PO SCH ×2 (08:04→20:12)
[2017-06-04] MEDS: LISINOPRIL 20 MG TABLET PO SCH (08:04)
[2017-06-04] MEDS: HYDROCODONE/ACETAMINOPHEN 5-325 MG TABLET PO PRN ×2 (08:05→17:15)
[2017-06-04 08:08] VITALS: BP 114/58
[2017-06-04] MEDS ORDERED: MAGNESIUM SULFATE 2 GM in DEXTROSE 5%-WATER 50 ML IV ONE (10:00)
[2017-06-04] MEDS ORDERED: SODIUM CHLORIDE 0.9% 250 ML IV ONE (10:59)
[2017-06-04] MEDS: INSULIN ASPART 100 UNITS/ML SQ PRN ×3 (11:09→20:18)
[2017-06-04 11:53] LABS: GLUCOSE COMMENT 1 Received Meds; GLUCOSE,POINT OF CARE 188 MG/DL (70-110)
[2017-06-04 12:02] VITALS: BP 126/72
[2017-06-04] MEDS: OXYGEN THERAPY IH SCH ×2 (14:59→19:33)
[2017-06-04 16:16] VITALS: BP 139/70
[2017-06-04 17:32] LABS: GLUCOSE COMMENT 1 Received Meds; GLUCOSE,POINT OF CARE 202 MG/DL (70-110)
[2017-06-04 20:00] VITALS: BP 129/70
[2017-06-04 21:17] LABS: GLUCOSE,POINT OF CARE 235 MG/DL (70-110)
[2017-06-04 23:37] VITALS: BP 118/64
[2017-06-05] MEDS: IPRATROPIUM BROMIDE 0.5 MG/2.5 ML NEB SOLUTION NEB SCH ×6 (03:26→23:41)
[2017-06-05] MEDS: ALBUTEROL SULFATE 2.5 MG/0.5 ML NEB SOLUTION NEB SCH ×6 (03:26→23:41)
[2017-06-05 04:00] VITALS: BP 141/62
[2017-06-05] MEDS: INSULIN ASPART 100 UNITS/ML SQ PRN ×4 (06:07→20:58)
[2017-06-05 06:52] LABS: GLUCOSE,POINT OF CARE 167 MG/DL (70-110)
[2017-06-05] MEDS: OXYGEN THERAPY IH SCH ×2 (07:05→20:08)
[2017-06-05] MEDS: HEPARIN SODIUM,PORCINE 5,000 UNITS/ML VIAL SQ SCH ×2 (07:47→16:39)
[2017-06-05] MEDS: MethylPREDNISolone SOD SUCC 40 MG/ML VIAL IVP SCH ×2 (07:47→16:39)
[2017-06-05] MEDS: OMEPRAZOLE 20 MG CAPSULE PO SCH (07:47)
[2017-06-05] MEDS: CALCIUM CARBONATE 648 MG TABLET PO SCH ×2 (07:47→20:51)
[2017-06-05] MEDS: DULoxetine HCL 20 MG CAPSULE PO SCH (07:47)
[2017-06-05] MEDS: MONTELUKAST SODIUM 10 MG TABLET PO SCH (07:47)
[2017-06-05] MEDS: LISINOPRIL 20 MG TABLET PO SCH (07:47)
[2017-06-05] MEDS: HYDROCODONE/ACETAMINOPHEN 5-325 MG TABLET PO PRN ×2 (07:48→18:23)
[2017-06-05 08:06] VITALS: BP 124/60
[2017-06-05 11:13] VITALS: BP 144/80
[2017-06-05 12:08] LABS: GLUCOSE,POINT OF CARE 217 MG/DL (70-110)
[2017-06-05 15:31] VITALS: BP 128/68
[2017-06-05 18:43] LABS: GLUCOSE COMMENT 1 Received Meds; GLUCOSE,POINT OF CARE 170 MG/DL (70-110)
[2017-06-05 20:07] VITALS: BP 117/68
[2017-06-05 22:43] LABS: GLUCOSE COMMENT 1 Received Meds; GLUCOSE,POINT OF CARE 296 MG/DL (70-110)
[2017-06-05 23:58] VITALS: BP 147/83
[2017-06-06] MEDS: HEPARIN SODIUM,PORCINE 5,000 UNITS/ML VIAL SQ SCH ×2 (00:26→08:35)
[2017-06-06] MEDS: IPRATROPIUM BROMIDE 0.5 MG/2.5 ML NEB SOLUTION NEB SCH ×3 (03:25→11:27)
[2017-06-06] MEDS: ALBUTEROL SULFATE 2.5 MG/0.5 ML NEB SOLUTION NEB SCH ×3 (03:26→11:27)
[2017-06-06 05:07] VITALS: BP 127/69
[2017-06-06 05:59] LABS: BASOPHILS % (AUTO) 0.2 % (0.0-2.0); EOSINOPHILS % (AUTO) 0 % (1.0-6.0); HEMATOCRIT 34.4 % (36-46); LYMPHOCYTES # (AUTO) 0.9 K/uL (1.0-4.8); MEAN CORPUSCULAR HEMOGLOBIN 27.6 pg (26.0-34.0); MEAN CORPUSCULAR HGB CONC 32.1 G/dL (31.0-37.0); MEAN CORPUSCULAR VOLUME 86 fL (80-100); MONOCYTES # (AUTO) 0.1 K/uL (0.1-1.0); MONOCYTES % (AUTO) 0.8 % (2.0-9.0); NEUTROPHILS # (AUTO) 16.1 K/uL (1.8-7.7); PLATELET COUNT (AUTO) 410 K/uL (150-450); RED BLOOD CELL COUNT(AUTO) 3.99 MIL/uL (4.00-5.20); RED CELL DISTRIBUTION WIDTH 14.9 % (11.5-14.5); WHITE BLOOD COUNT (AUTO) 17.1 K/uL (4.5-11.0)
[2017-06-06] MEDS: INSULIN ASPART 100 UNITS/ML SQ PRN ×2 (06:02→10:49)
[2017-06-06] MEDS: HYDROCODONE/ACETAMINOPHEN 5-325 MG TABLET PO PRN (06:04)
[2017-06-06 06:16] LABS: ANION GAP 10 mmol/L (8-16); CARBON DIOXIDE 26 mmol/L (22-29); CHLORIDE 105 mmol/L (98-107); CREATININE 1.11 mg/dL (0.60-1.30); GLOMERULAR FILTR. RATE CALC > 60 mL/min (>60); POTASSIUM 4.6 mmol/L (3.5-5.1); SODIUM SERUM 141 mmol/L (136-145); UREA NITROGEN, BLOOD 20 mg/dL (7-18)
[2017-06-06] MEDS: OXYGEN THERAPY IH SCH (07:26)
[2017-06-06 08:13] VITALS: BP 116/59
[2017-06-06] MEDS: OMEPRAZOLE 20 MG CAPSULE PO SCH (08:35)
[2017-06-06] MEDS: MONTELUKAST SODIUM 10 MG TABLET PO SCH (08:35)
[2017-06-06] MEDS: LISINOPRIL 20 MG TABLET PO SCH (08:35)
[2017-06-06] MEDS: DULoxetine HCL 20 MG CAPSULE PO SCH (08:35)
[2017-06-06] MEDS: CALCIUM CARBONATE 648 MG TABLET PO SCH (08:35)
[2017-06-06] MEDS ORDERED: PredniSONE 20 MG TABLET PO SCH (09:00)
[2017-06-06 12:08] VITALS: BP 131/80
[2017-06-06] MEDS ORDERED: PRED20TA3 PO (13:29)
[2017-06-08 20:27] LABS: GLUCOSE COMMENT 1 Received Meds; GLUCOSE,POINT OF CARE 176 MG/DL (70-110)
[2017-06-08 20:27] LABS: GLUCOSE COMMENT 1 Received Meds; GLUCOSE,POINT OF CARE 168 MG/DL (70-110)
== END 2017-06-06 14:40 | disposition home or self-care (01) | DRG 133 ==
LOC: EMS 18:56 → 6N 22:47
PROVIDERS: ADMIT Family Medicine; ATTEND Family Medicine
DX: J96.20 Acute and chronic respiratory failure, unspecified whether with hypoxia or hypercapnia (principal); E11.22 Type 2 diabetes mellitus with diabetic chronic kidney disease; J44.1 Chronic obstructive pulmonary disease with (acute) exacerbation; I50.9 Heart failure, unspecified; I13.0 Hypertensive heart and chronic kidney disease with heart failure and stage 1 through stage 4 chronic kidney disease, or unspecified chronic kidney disease; J45.901 Unspecified asthma with (acute) exacerbation; N18.3 Chronic kidney disease, stage 3 (moderate); F31.9 Bipolar disorder, unspecified; E87.6 Hypokalemia; F17.200 Nicotine dependence, unspecified, uncomplicated; Z98.891 History of uterine scar from previous surgery; Z79.899 Other long term (current) drug therapy; Z79.84 Long term (current) use of oral hypoglycemic drugs; Z79.51 Long term (current) use of inhaled steroids; Z87.01 Personal history of pneumonia (recurrent)
CPT/HCPCS: 74177; 82962; 83735; 84132; 93005; 94640; 96374; 99291; J1644; J1650; J2920; J2930; J3475; J7030; J7050; J7060

== ENCOUNTER 2017-10-21 13:20 | Emergency (ER) | payer MEDICAID ==
[~2017-10-21] VITALS: Ht 162.6 cm; Wt 131.4 kg
[~2017-10-21 13:20] MED LIST changes: -AZIT250T6 PO; -HYDR-3965 PO; -PRED20 PO; +PRED20TA3 PO
[2017-10-21 14:07] LABS: GLUCOSE,POINT OF CARE 88 MG/DL (70-110)
[2017-10-21] MEDS ORDERED: DEXAMETHASONE SOD PHOS 4 MG/ML 5 ML VIAL IM ONE (16:45)
[2017-10-21] MEDS ORDERED: IPRATROPIUM BROMIDE 0.5 MG/2.5 ML NEB SOLUTION NEB ONE (16:45)
[2017-10-21] MEDS ORDERED: OxyCODONE HCL/ACETAMINOPHEN 5-325 MG TABLET PO ONE (16:45)
[2017-10-21] MEDS ORDERED: ALBUTEROL SULFATE 5 MG/ML 20 ML NEB SOLN [BULK] NEB ONE (16:45)
[2017-10-21] MEDS ORDERED: 0.9% SODIUM CHLORIDE 5 ML NEB SOLUTION NEB ONE (16:49)
[2017-10-21 18:40] VITALS: BP 144/78
[2017-11-15] MEDS ORDERED: PRED10 PO (14:09)
[2017-11-15] MEDS ORDERED: AZIT250T9 PO (14:10)
== END 2017-10-21 18:55 | disposition home or self-care (01) ==
LOC: EMS 13:26
DX: J45.901 Unspecified asthma with (acute) exacerbation (principal); J44.1 Chronic obstructive pulmonary disease with (acute) exacerbation; M16.12 Unilateral primary osteoarthritis, left hip; I13.0 Hypertensive heart and chronic kidney disease with heart failure and stage 1 through stage 4 chronic kidney disease, or unspecified chronic kidney disease; N18.9 Chronic kidney disease, unspecified; I50.9 Heart failure, unspecified; F31.9 Bipolar disorder, unspecified; Z79.899 Other long term (current) drug therapy
CPT/HCPCS: 82962; 94644; 96372; 99285; J1100; J7611

== ENCOUNTER 2018-03-15 10:47 | Emergency (ER) | payer MEDICAID ==
[~2018-03-15] VITALS: Ht 157.5 cm; Wt 113.6 kg
[~2018-03-15 10:47] MED LIST changes: +AZIT250T9 PO; -CALC260T6 PO; -DULO20CA30 PO; -GLYB2.5 PO; -OMEP20 PO; +PRED10 PO; -PRED20TA3 PO
[2018-03-15 13:35] LABS: APPEARANCE,URINE CLEAR (CLEAR)
[2018-03-15 13:36] LABS: BILIRUBIN,URINE PRELIM. POSITIVE (NEGATIVE); GLUCOSE, URINE (UA) NEGATIVE (NEGATIVE); OCCULT BLOOD,URINE NEGATIVE (NEGATIVE); PH,URINE 5.5 (5.0-8.0); PROTEIN,URINE TRACE (NEGATIVE)
[2018-03-15 13:37] LABS: KETONES,URINE 40 mg/dL (NEGATIVE); LEUKOCYTE ESTERASE ,URINE NEGATIVE (NEGATIVE); NITRATE,URINE NEGATIVE (NEGATIVE); UROBILINOGEN,URINE 0.2 mg/dL (<=1.0)
[2018-03-15 13:49] LABS: BASOPHILS % (AUTO) 0.3 % (0.0-2.0); HEMATOCRIT 41.9 % (36-46); HEMOGLOBIN 13.8 g/dL (12.0-16.0); LYMPHOCYTES # (AUTO) 2.4 K/uL (1.0-4.8); LYMPHOCYTES % (AUTO) 48.5 % (22.0-44.0); MEAN CORPUSCULAR HEMOGLOBIN 27.5 pg (26.0-34.0); MEAN CORPUSCULAR HGB CONC 32.9 G/dL (31.0-37.0); MEAN CORPUSCULAR VOLUME 84 fL (80-100); MONOCYTES # (AUTO) 0.4 K/uL (0.1-1.0); MONOCYTES % (AUTO) 7.4 % (2.0-9.0); NEUTROPHILS # (AUTO) 1.9 K/uL (1.8-7.7); NEUTROPHILS % (AUTO) 38.8 % (40.0-70.0); PLATELET COUNT (AUTO) 343 K/uL (150-450); RED BLOOD CELL COUNT(AUTO) 5.01 MIL/uL (4.00-5.20); RED CELL DISTRIBUTION WIDTH 14.3 % (11.5-14.5)
[2018-03-15 14:29] LABS: ANION GAP 13 mmol/L (8-16); CALCIUM, TOTAL 10.7 mg/dL (8.8-10.5); CARBON DIOXIDE 25 mmol/L (22-29); CHLORIDE 104 mmol/L (98-107); CREATININE 0.73 mg/dL (0.60-1.30); GLOMERULAR FILTR. RATE CALC > 60 mL/min (>60); GLUCOSE,RANDOM 69 mg/dL (70-110); POTASSIUM 4.9 mmol/L (3.5-5.1); SODIUM SERUM 142 mmol/L (136-145); UREA NITROGEN, BLOOD 16 mg/dL (7-18)
[2018-03-15 14:34] LABS: ALANINE AMINOTRANSFERASE 21 U/L (12-78); ALKALINE PHOSPHATASE 96 U/L (46-116); ASPARTATE AMINOTRANSFERASE 27 U/L (15-37); BILIRUBIN,TOTAL 0.9 mg/dL (0.1-1.0); LIPASE 92 U/L (73-393); TOTAL PROTEIN, SERUM 7.8 g/dL (6.4-8.2)
[2018-03-15] MEDS ORDERED: KETOROLAC TROMETHAMINE 30 MG/ML VIAL IVP ONE (14:45)
[2018-03-15] MEDS ORDERED: SODIUM CHLORIDE 0.9% 1,000 ML IV ONE (14:45)
[2018-03-15] MEDS ORDERED: IPRATROPIUM BROMIDE 0.5 MG/2.5 ML NEB SOLUTION NEB ONE (15:00)
[2018-03-15] MEDS ORDERED: ALBUTEROL SULFATE 5 MG/ML 20 ML NEB SOLN [BULK] NEB ONE (15:00)
[2018-03-15 17:05] VITALS: BP 127/72
== END 2018-03-15 17:09 | disposition home or self-care (01) ==
LOC: EMS 10:49
DX: J44.9 Chronic obstructive pulmonary disease, unspecified (principal); M47.896 Other spondylosis, lumbar region; J45.909 Unspecified asthma, uncomplicated; M13.852 Other specified arthritis, left hip; F31.9 Bipolar disorder, unspecified; I13.0 Hypertensive heart and chronic kidney disease with heart failure and stage 1 through stage 4 chronic kidney disease, or unspecified chronic kidney disease; E11.22 Type 2 diabetes mellitus with diabetic chronic kidney disease; N18.9 Chronic kidney disease, unspecified; I50.9 Heart failure, unspecified
CPT/HCPCS: 36415; 72131; 80053; 81003; 83690; 83880; 84484; 85025; 93005; 94644; 96361; 96374; 99285; J1885; J7030; J7611

== ENCOUNTER 2018-09-22 11:26 | Emergency (ER) | payer MEDICAID ==
[~2018-09-22] VITALS: Ht 162.6 cm; Wt 104.5 kg
[~2018-09-22 11:26] MED LIST changes: +IPRA3AMP24 IH; -IPRA3AMP4 IH
[2018-09-22] MEDS ORDERED: GLIP5 PO (11:45)
[2018-09-22 11:48] LABS: GLUCOSE,POINT OF CARE 64 MG/DL (70-110)
[2018-09-22] MEDS ORDERED: LIDOCAINE 5% TRANSDERMAL PATCH TD ONE (13:30)
[2018-09-22] MEDS ORDERED: TraMADol HCL 50 MG TABLET PO ONE (14:15)
[2018-09-22 16:56] VITALS: BP 142/73
== END 2018-09-22 17:16 | disposition home or self-care (01) ==
LOC: EMS 11:27
DX: M16.12 Unilateral primary osteoarthritis, left hip (principal); I13.0 Hypertensive heart and chronic kidney disease with heart failure and stage 1 through stage 4 chronic kidney disease, or unspecified chronic kidney disease; E11.22 Type 2 diabetes mellitus with diabetic chronic kidney disease; N18.9 Chronic kidney disease, unspecified; I50.9 Heart failure, unspecified; J44.9 Chronic obstructive pulmonary disease, unspecified; F31.9 Bipolar disorder, unspecified
CPT/HCPCS: 73503

== ENCOUNTER 2019-07-01 16:45 | Inpatient (IN) | payer MEDICAID ==
[~2019-07-01] VITALS: Ht 157.5 cm; Wt 81.6 kg
[~2019-07-01 16:45] MED LIST changes: -AZIT250T9 PO; +GLIP5 PO
[2019-07-01] MEDS ORDERED: IPRATROPIUM BROMIDE 0.5 MG/2.5 ML NEB SOLUTION NEB ONE ×2 (17:15→18:00)
[2019-07-01] MEDS ORDERED: ALBUTEROL SULFATE 5 MG/ML 20 ML NEB SOLN [BULK] NEB ONE ×3 (17:15→20:00)
[2019-07-01] MEDS ORDERED: MethylPREDNISolone SOD SUCC 125 MG/2 ML VIAL IVP ONE (17:15)
[2019-07-01 17:39] LABS: BASOPHILS % (AUTO) 1.3 % (0.0-2.0); EOSINOPHILS % (AUTO) 3.4 % (1.0-6.0); HEMATOCRIT 39.9 % (36-46); HEMOGLOBIN 12.4 g/dL (12.0-16.0); LYMPHOCYTES # (AUTO) 2.2 K/uL (1.0-4.8); LYMPHOCYTES % (AUTO) 26.6 % (22.0-44.0); MEAN CORPUSCULAR HEMOGLOBIN 28.1 pg (26.0-34.0); MEAN CORPUSCULAR HGB CONC 31.2 G/dL (31.0-37.0); MEAN CORPUSCULAR VOLUME 90 fL (80-100); MONOCYTES # (AUTO) 0.6 K/uL (0.1-1.0); MONOCYTES % (AUTO) 7.7 % (2.0-9.0); PLATELET COUNT (AUTO) 317 K/uL (150-450); RED BLOOD CELL COUNT(AUTO) 4.42 MIL/uL (4.00-5.20); RED CELL DISTRIBUTION WIDTH 13.2 % (11.5-14.5)
[2019-07-01 18:02] LABS: ANION GAP 13 mmol/L (8-16); CALCIUM, TOTAL 10.1 mg/dL (8.8-10.5); CARBON DIOXIDE 24 mmol/L (22-29); CHLORIDE 103 mmol/L (98-107); GLOMERULAR FILTR. RATE CALC > 60 mL/min (>60); GLUCOSE,RANDOM 116 mg/dL (70-110); SODIUM SERUM 140 mmol/L (136-145); UREA NITROGEN, BLOOD 21 mg/dL (7-18)
[2019-07-01 18:08] LABS: ALANINE AMINOTRANSFERASE 16 U/L (12-78); ALKALINE PHOSPHATASE 110 U/L (46-116); ASPARTATE AMINOTRANSFERASE 20 U/L (15-37); BILIRUBIN,TOTAL 0.5 mg/dL (0.1-1.0); TOTAL PROTEIN, SERUM 7.4 g/dL (6.4-8.2)
[2019-07-01 18:11] LABS: LACTIC ACID 1.8 mmol/L (0.4-2.0)
[2019-07-01 18:16] LABS: B-TYPE NATRIURETIC PEPTIDE < 5 pg/mL (0-100)
[2019-07-01 18:27] LABS: CREATINE KINASE, TOTAL ONLY 157 U/L (26-192)
[2019-07-01] MEDS ORDERED: 0.9% SODIUM CHLORIDE 5 ML NEB SOLUTION NEB ONE (21:08)
[2019-07-01 21:37] LABS: ABG BASE EXCESS -2.2 mmol/L (-2.0-3.0); ABG CARBOXYHEMOGLOBIN 0.1 % (0.0-1.5); ABG HCO3 23.3 mmol/L (22.0-26.0); ABG METHEMOGLOBIN 0.4 % (0.0-1.5); ABG OXYGEN CONTENT 18.4 mL/dL (15.0-23.0); ABG OXYGEN SATURATION 98.3 % (95.0-98.0); ABG OXYHEMOGLOBIN 97.8 % (94.0-100.0); ABG PCO2 33 mmHg (35-45); ABG PH 7.442 (7.35-7.450); ABG TOTAL HEMOGLOBIN 13.3 G/dL (12.0-18.0); O2 DEVICE,BLOOD GAS BIPAP (ROOM AIR); PO2, ARTERIAL BG 104.9 mmHg (84.0-92.0); SITE, BLOOD GAS RT RADIAL; SOURCE, BLOOD GAS ARTERIAL; TEMPERATURE, FAHRENHEIT, BG 98.6 FAHREN (96.0-98.6)
[2019-07-01] MEDS ORDERED: ONDANSETRON HCL 4 MG/2 ML VIAL IVP PRN (21:45)
[2019-07-01] MEDS ORDERED: ZOLPIDEM TARTRATE 5 MG TABLET PO PRN (21:45)
[2019-07-01] MEDS ORDERED: IPRATROPIUM BROMIDE 0.5 MG/2.5 ML NEB SOLUTION NEB PRN (21:45)
[2019-07-01] MEDS ORDERED: MORPHINE SULFATE 2 MG/ML SYRINGE IVP PRN (21:45)
[2019-07-01] MEDS ORDERED: BISACODYL 10 MG RECTAL RECTAL SUPPOSITORY PR PRN (21:45)
[2019-07-01] MEDS ORDERED: CefTRIAXone 1 GM/DEXTROSE 50 ML IV SCH (21:45)
[2019-07-01] MEDS ORDERED: MAGNESIUM HYDROXIDE SUSPENSION 30 ML UDCUP PO PRN (21:45)
[2019-07-01] MEDS ORDERED: 0.9% SODIUM CHLORIDE 10 ML SYRINGE IVP PRN (21:45)
[2019-07-01] MEDS ORDERED: ACETAMINOPHEN 325 MG TABLET PO PRN ×2 (21:45)
[2019-07-01] MEDS ORDERED: INSULIN LISPRO 100 UNITS/ML SQ PRN (21:45)
[2019-07-01] MEDS ORDERED: ALBUTEROL SULFATE 2.5 MG/0.5 ML NEB SOLUTION NEB PRN (21:45)
[2019-07-01 22:57] VITALS: BP 133/71
[2019-07-01] MEDS ORDERED: SODIUM CHLORIDE 0.9% 250 ML IV ONE (23:10)
[2019-07-01] MEDS: BENZONATATE 100 MG CAPSULE PO SCH (23:22)
[2019-07-01] MEDS: CefTRIAXone 1 GM/DEXTROSE 50 ML IV SCH (23:22)
[2019-07-01] MEDS: MethylPREDNISolone SOD SUCC 125 MG/2 ML VIAL IVP SCH (23:23)
[2019-07-01] MEDS: HEPARIN SODIUM,PORCINE 5,000 UNITS/ML VIAL SQ SCH (23:24)
[2019-07-01] MEDS: HYDROCODONE/ACETAMINOPHEN 5-325 MG TABLET PO PRN (23:27)
[2019-07-02] MEDS: IPRATROPIUM BROMIDE 0.5 MG/2.5 ML NEB SOLUTION NEB SCH ×4 (01:50→19:53)
[2019-07-02] MEDS: ALBUTEROL SULFATE 2.5 MG/0.5 ML NEB SOLUTION NEB SCH ×4 (01:50→19:53)
[2019-07-02 03:52] VITALS: BP 110/62
[2019-07-02] MEDS: MethylPREDNISolone SOD SUCC 125 MG/2 ML VIAL IVP SCH ×3 (06:14→23:41)
[2019-07-02] MEDS: GlipiZIDE 5 MG TABLET PO SCH ×2 (06:14→17:30)
[2019-07-02] MEDS: HYDROCODONE/ACETAMINOPHEN 5-325 MG TABLET PO PRN ×3 (06:23→17:57)
[2019-07-02] MEDS: ONDANSETRON HCL 4 MG/2 ML VIAL IVP PRN (08:34)
[2019-07-02] MEDS: HEPARIN SODIUM,PORCINE 5,000 UNITS/ML VIAL SQ SCH ×3 (09:11→23:42)
[2019-07-02] MEDS: BENZONATATE 100 MG CAPSULE PO SCH ×3 (09:11→21:03)
[2019-07-02] MEDS: MONTELUKAST SODIUM 10 MG TABLET PO SCH (09:11)
[2019-07-02] MEDS: LISINOPRIL 20 MG TABLET PO SCH (09:12)
[2019-07-02] MEDS: DOCUSATE SODIUM 100 MG CAPSULE PO SCH ×2 (09:12→21:03)
[2019-07-02] MEDS: GuaiFENesin SR 600 MG ER TABLET PO SCH ×2 (09:12→21:03)
[2019-07-02] MEDS: PANTOPRAZOLE SODIUM 40 MG DR TABLET PO SCH (09:12)
[2019-07-02 11:21] VITALS: BP 140/66
[2019-07-02 12:12] LABS: GLUCOMETER DEV NAME(LOC) 5S.1; GLUCOSE,POINT OF CARE 184 MG/DL (70-110)
[2019-07-02 16:18] VITALS: BP 140/74
[2019-07-02] MEDS: DEXTROSE 50%-WATER 25 GM/50 ML SYRINGE IVP PRN (18:21)
[2019-07-02 20:52] VITALS: BP 117/56
[2019-07-02] MEDS: CefTRIAXone 1 GM/DEXTROSE 50 ML IV SCH (23:41)
[2019-07-02 23:59] VITALS: BP 147/75
[2019-07-03] MEDS: IPRATROPIUM BROMIDE 0.5 MG/2.5 ML NEB SOLUTION NEB SCH ×4 (02:58→20:32)
[2019-07-03] MEDS: ALBUTEROL SULFATE 2.5 MG/0.5 ML NEB SOLUTION NEB SCH ×4 (02:59→20:32)
[2019-07-03 04:40] VITALS: BP 154/74
[2019-07-03] MEDS: ONDANSETRON HCL 4 MG/2 ML VIAL IVP PRN ×2 (06:10→19:30)
[2019-07-03] MEDS: GlipiZIDE 5 MG TABLET PO SCH (06:10)
[2019-07-03 06:46] LABS: GLUCOMETER DEV NAME(LOC) 5S.2A; GLUCOSE,POINT OF CARE 127 MG/DL (70-110)
[2019-07-03 06:46] LABS: GLUCOMETER DEV NAME(LOC) 5S.2A; GLUCOSE,POINT OF CARE 132 MG/DL (70-110)
[2019-07-03 08:22] VITALS: BP 127/66
[2019-07-03] MEDS: HYDROCODONE/ACETAMINOPHEN 5-325 MG TABLET PO PRN ×2 (08:37→15:48)
[2019-07-03] MEDS: HEPARIN SODIUM,PORCINE 5,000 UNITS/ML VIAL SQ SCH ×3 (08:38→23:17)
[2019-07-03] MEDS: PANTOPRAZOLE SODIUM 40 MG DR TABLET PO SCH (08:38)
[2019-07-03] MEDS: MethylPREDNISolone SOD SUCC 125 MG/2 ML VIAL IVP SCH (08:38)
[2019-07-03] MEDS: DOCUSATE SODIUM 100 MG CAPSULE PO SCH ×2 (08:39→20:22)
[2019-07-03] MEDS: BENZONATATE 100 MG CAPSULE PO SCH ×3 (08:39→20:22)
[2019-07-03] MEDS: MONTELUKAST SODIUM 10 MG TABLET PO SCH (08:39)
[2019-07-03] MEDS: GuaiFENesin SR 600 MG ER TABLET PO SCH ×2 (08:39→20:22)
[2019-07-03] MEDS: LISINOPRIL 20 MG TABLET PO SCH (08:39)
[2019-07-03] MEDS: DEXTROSE 50%-WATER 25 GM/50 ML SYRINGE IVP PRN (12:12)
[2019-07-03 12:25] VITALS: BP 132/65
[2019-07-03] MEDS: MethylPREDNISolone SOD SUCC 40 MG/ML VIAL IVP SCH ×2 (16:40→23:17)
[2019-07-03 16:41] LABS: GLUCOMETER DEV NAME(LOC) 5S.1; GLUCOSE,POINT OF CARE 155 MG/DL (70-110)
[2019-07-03 16:41] LABS: GLUCOMETER DEV NAME(LOC) 5S.1; GLUCOSE,POINT OF CARE 169 MG/DL (70-110)
[2019-07-03 16:41] LABS: GLUCOMETER DEV NAME(LOC) 5S.1; GLUCOSE,POINT OF CARE 61 MG/DL (70-110)
[2019-07-03 16:41] LABS: GLUCOMETER DEV NAME(LOC) 5S.1; GLUCOSE,POINT OF CARE 65 MG/DL (70-110)
[2019-07-03 16:41] LABS: GLUCOMETER DEV NAME(LOC) 5S.1; GLUCOSE,POINT OF CARE 82 MG/DL (70-110)
[2019-07-03 16:41] LABS: GLUCOMETER DEV NAME(LOC) 5S.1; GLUCOSE,POINT OF CARE 54 MG/DL (70-110)
[2019-07-03 16:41] LABS: GLUCOMETER DEV NAME(LOC) 5S.1; GLUCOSE,POINT OF CARE 60 MG/DL (70-110)
[2019-07-03 16:41] LABS: GLUCOMETER DEV NAME(LOC) 5S.1; GLUCOSE,POINT OF CARE 54 MG/DL (70-110)
[2019-07-03 17:30] LABS: GLUCOMETER DEV NAME(LOC) 6N.1; GLUCOSE,POINT OF CARE 87 MG/DL (70-110)
[2019-07-03 19:58] VITALS: BP 109/54
[2019-07-03] MEDS: CefTRIAXone 1 GM/DEXTROSE 50 ML IV SCH (22:55)
[2019-07-03 23:13] VITALS: BP 149/78
[2019-07-03 23:40] LABS: GLUCOMETER DEV NAME(LOC) 6N.1; GLUCOSE,POINT OF CARE 79 MG/DL (70-110)
[2019-07-04] VITALS (7 sets, daily range): BP systolic 119–143; BP diastolic 64–84
[2019-07-04] MEDS ORDERED: SODIUM CHLORIDE 0.9% 250 ML IV ONE (01:23)
[2019-07-04] MEDS: IPRATROPIUM BROMIDE 0.5 MG/2.5 ML NEB SOLUTION NEB SCH ×4 (02:29→20:30)
[2019-07-04] MEDS: ALBUTEROL SULFATE 2.5 MG/0.5 ML NEB SOLUTION NEB SCH ×4 (02:29→20:31)
[2019-07-04] MEDS: DEXTROSE 50%-WATER 25 GM/50 ML SYRINGE IVP PRN (05:45)
[2019-07-04] MEDS: HYDROCODONE/ACETAMINOPHEN 5-325 MG TABLET PO PRN ×3 (05:54→15:58)
[2019-07-04 06:26] LABS: GLUCOMETER DEV NAME(LOC) 6N.1; GLUCOSE,POINT OF CARE 43 MG/DL (70-110)
[2019-07-04 06:26] LABS: GLUCOMETER DEV NAME(LOC) 6N.1; GLUCOSE,POINT OF CARE 220 MG/DL (70-110)
[2019-07-04] MEDS: HEPARIN SODIUM,PORCINE 5,000 UNITS/ML VIAL SQ SCH ×2 (07:44→15:58)
[2019-07-04] MEDS: MethylPREDNISolone SOD SUCC 40 MG/ML VIAL IVP SCH ×3 (07:44→23:03)
[2019-07-04] MEDS: PANTOPRAZOLE SODIUM 40 MG DR TABLET PO SCH (07:45)
[2019-07-04] MEDS: BENZONATATE 100 MG CAPSULE PO SCH ×3 (07:45→19:36)
[2019-07-04] MEDS: DOCUSATE SODIUM 100 MG CAPSULE PO SCH ×3 (07:45→21:00)
[2019-07-04] MEDS: LISINOPRIL 20 MG TABLET PO SCH (07:45)
[2019-07-04] MEDS: GuaiFENesin SR 600 MG ER TABLET PO SCH ×2 (07:45→19:36)
[2019-07-04] MEDS: MONTELUKAST SODIUM 10 MG TABLET PO SCH (07:45)
[2019-07-04] MEDS: DEXTROSE 5%-0.45% SODIUM CHL 1,000 ML IV SCH (07:53)
[2019-07-04 11:05] LABS: GLUCOMETER DEV NAME(LOC) 6N.1; GLUCOSE,POINT OF CARE 149 MG/DL (70-110)
[2019-07-04 18:26] LABS: GLUCOMETER DEV NAME(LOC) 6N.1; GLUCOSE,POINT OF CARE 66 MG/DL (70-110)
[2019-07-04 18:26] LABS: GLUCOMETER DEV NAME(LOC) 6N.1; GLUCOSE,POINT OF CARE 76 MG/DL (70-110)
[2019-07-04] MEDS: ONDANSETRON HCL 4 MG/2 ML VIAL IVP PRN (19:37)
[2019-07-04 21:21] LABS: GLUCOMETER DEV NAME(LOC) 6N.1; GLUCOSE,POINT OF CARE 114 MG/DL (70-110)
[2019-07-04] MEDS: CefTRIAXone 1 GM/DEXTROSE 50 ML IV SCH (23:02)
[2019-07-05] MEDS: HEPARIN SODIUM,PORCINE 5,000 UNITS/ML VIAL SQ SCH ×4 (00:27→23:27)
[2019-07-05] MEDS: IPRATROPIUM BROMIDE 0.5 MG/2.5 ML NEB SOLUTION NEB SCH ×4 (03:18→22:14)
[2019-07-05] MEDS: ALBUTEROL SULFATE 2.5 MG/0.5 ML NEB SOLUTION NEB SCH ×4 (03:18→22:15)
[2019-07-05] MEDS: DEXTROSE 5%-0.45% SODIUM CHL 1,000 ML IV SCH ×2 (03:35→23:26)
[2019-07-05 05:35] VITALS: BP 142/82
[2019-07-05 07:30] LABS: GLUCOMETER DEV NAME(LOC) 6N.1; GLUCOSE,POINT OF CARE 103 MG/DL (70-110)
[2019-07-05] MEDS: MethylPREDNISolone SOD SUCC 40 MG/ML VIAL IVP SCH ×3 (08:18→23:27)
[2019-07-05] MEDS: MONTELUKAST SODIUM 10 MG TABLET PO SCH (08:19)
[2019-07-05] MEDS: BENZONATATE 100 MG CAPSULE PO SCH ×3 (08:19→22:03)
[2019-07-05] MEDS: GuaiFENesin SR 600 MG ER TABLET PO SCH ×2 (08:19→19:41)
[2019-07-05] MEDS: DOCUSATE SODIUM 100 MG CAPSULE PO SCH ×2 (08:19→19:41)
[2019-07-05] MEDS: LISINOPRIL 20 MG TABLET PO SCH (08:19)
[2019-07-05] MEDS: PANTOPRAZOLE SODIUM 40 MG DR TABLET PO SCH (08:19)
[2019-07-05 09:16] VITALS: BP 118/63
[2019-07-05] MEDS: ONDANSETRON HCL 4 MG/2 ML VIAL IVP PRN (09:51)
[2019-07-05] MEDS: HYDROCODONE/ACETAMINOPHEN 5-325 MG TABLET PO PRN ×2 (09:52→20:36)
[2019-07-05 12:33] VITALS: BP 138/3
[2019-07-05 16:00] VITALS: BP 136/76
[2019-07-05 17:11] LABS: GLUCOMETER DEV NAME(LOC) 6N.1; GLUCOSE,POINT OF CARE 95 MG/DL (70-110)
[2019-07-05] MEDS: METOCLOPRAMIDE HCL 5 MG/ML 2 ML VIAL IVP SCH ×2 (17:55→23:27)
[2019-07-05 19:51] VITALS: BP 124/68
[2019-07-05] MEDS: CefTRIAXone 1 GM/DEXTROSE 50 ML IV SCH (22:52)
[2019-07-06 00:19] VITALS: BP 119/67
[2019-07-06] MEDS: IPRATROPIUM BROMIDE 0.5 MG/2.5 ML NEB SOLUTION NEB SCH ×2 (02:46→09:30)
[2019-07-06] MEDS: ALBUTEROL SULFATE 2.5 MG/0.5 ML NEB SOLUTION NEB SCH ×2 (02:47→09:30)
[2019-07-06 05:03] VITALS: BP 142/73
[2019-07-06 05:51] LABS: GLUCOMETER DEV NAME(LOC) 6N.1; GLUCOSE,POINT OF CARE 200 MG/DL (70-110)
[2019-07-06 05:51] LABS: GLUCOMETER DEV NAME(LOC) 6N.1; GLUCOSE,POINT OF CARE 184 MG/DL (70-110)
[2019-07-06 08:10] VITALS: BP 129/67
[2019-07-06] MEDS: MethylPREDNISolone SOD SUCC 40 MG/ML VIAL IVP SCH (08:16)
[2019-07-06] MEDS: METOCLOPRAMIDE HCL 5 MG/ML 2 ML VIAL IVP SCH (08:16)
[2019-07-06] MEDS: BENZONATATE 100 MG CAPSULE PO SCH (08:18)
[2019-07-06] MEDS: HEPARIN SODIUM,PORCINE 5,000 UNITS/ML VIAL SQ SCH (08:18)
[2019-07-06] MEDS: HYDROCODONE/ACETAMINOPHEN 5-325 MG TABLET PO PRN (08:18)
[2019-07-06] MEDS: DOCUSATE SODIUM 100 MG CAPSULE PO SCH (08:19)
[2019-07-06] MEDS: GuaiFENesin SR 600 MG ER TABLET PO SCH (08:19)
[2019-07-06] MEDS: PANTOPRAZOLE SODIUM 40 MG DR TABLET PO SCH (08:19)
[2019-07-06] MEDS: LISINOPRIL 20 MG TABLET PO SCH (08:19)
[2019-07-06] MEDS: MONTELUKAST SODIUM 10 MG TABLET PO SCH (08:27)
[2019-07-06] MEDS ORDERED: BENZ200C53 PO (09:54)
[2019-07-06] MEDS ORDERED: METO5TAB87 PO (09:58)
[2019-07-06] MEDS ORDERED: OMEP20 PO (10:00)
[2019-07-06] MEDS ORDERED: AUD NEB (10:03)
[2019-07-06 11:25] VITALS: BP 136/70
== END 2019-07-06 13:06 | disposition home or self-care (01) | DRG 140 ==
LOC: EMS 16:45 → 5S 20:00 → 6N 22:10
PROVIDERS: ADMIT Internal Medicine; ATTEND Internal Medicine
PROC: 5A09357 Assistance with Respiratory Ventilation, Less than 24 Consecutive Hours, Continuous Positive Airway Pressure (ICD-10-PCS; principal; 2019-07-01)
PROC: 5A09357 Assistance with Respiratory Ventilation, Less than 24 Consecutive Hours, Continuous Positive Airway Pressure (ICD-10-PCS; 2019-07-02)
DX: J44.1 Chronic obstructive pulmonary disease with (acute) exacerbation (principal); J96.00 Acute respiratory failure, unspecified whether with hypoxia or hypercapnia; E11.22 Type 2 diabetes mellitus with diabetic chronic kidney disease; E11.649 Type 2 diabetes mellitus with hypoglycemia without coma; E66.9 Obesity, unspecified; I13.0 Hypertensive heart and chronic kidney disease with heart failure and stage 1 through stage 4 chronic kidney disease, or unspecified chronic kidney disease; N18.9 Chronic kidney disease, unspecified; F17.200 Nicotine dependence, unspecified, uncomplicated; I50.9 Heart failure, unspecified; F31.9 Bipolar disorder, unspecified; K21.9 Gastro-esophageal reflux disease without esophagitis; Z98.891 History of uterine scar from previous surgery; Z68.32 Body mass index [BMI] 32.0-32.9, adult; Z87.01 Personal history of pneumonia (recurrent)
CPT/HCPCS: 74019; 82805; 83036; 83605; 87040; 93005; 94640; 94644; 94660; G0378; J0696; J1644; J2405; J2765; J2920; J2930; J7050

== ENCOUNTER 2019-09-20 11:16 | Inpatient (IN) | payer MEDICAID ==
[~2019-09-20] VITALS: Ht 165.1 cm; Wt 79.5 kg
[~2019-09-20 11:16] MED LIST changes: -ALBU8HFA IH; -BECL10.62 IH; -BENZ100C68 PO; -IPRAHFA IH; -LOSA50TA64 PO
[2019-09-20] MEDS ORDERED: MethylPREDNISolone SOD SUCC 125 MG/2 ML VIAL IVP ONE (11:30)
[2019-09-20] MEDS ORDERED: ALBUTEROL SULFATE 2.5 MG/0.5 ML NEB SOLUTION NEB ONE (11:30)
[2019-09-20] MEDS ORDERED: DOXYCYCLINE HYCLATE 100 MG in DEXTROSE 5%-WATER 100 ML IV ONE (11:30)
[2019-09-20] MEDS ORDERED: IPRATROPIUM BROMIDE 0.5 MG/2.5 ML NEB SOLUTION NEB ONE (11:30)
[2019-09-20 12:35] LABS: BASOPHILS % (AUTO) 0.7 % (0.0-2.0); EOSINOPHILS % (AUTO) 0.1 % (1.0-6.0); HEMOGLOBIN 12.9 g/dL (12.0-16.0); LYMPHOCYTES # (AUTO) 2.2 K/uL (1.0-4.8); LYMPHOCYTES % (AUTO) 19.3 % (22.0-44.0); MEAN CORPUSCULAR HEMOGLOBIN 27.3 pg (26.0-34.0); MEAN CORPUSCULAR HGB CONC 31.5 G/dL (31.0-37.0); MEAN CORPUSCULAR VOLUME 87 fL (80-100); MONOCYTES # (AUTO) 0.5 K/uL (0.1-1.0); MONOCYTES % (AUTO) 4.8 % (2.0-9.0); NEUTROPHILS # (AUTO) 8.4 K/uL (1.8-7.7); NEUTROPHILS % (AUTO) 75.1 % (40.0-70.0); PLATELET COUNT (AUTO) 382 K/uL (150-450); RED BLOOD CELL COUNT(AUTO) 4.73 MIL/uL (4.00-5.20); RED CELL DISTRIBUTION WIDTH 13.1 % (11.5-14.5)
[2019-09-20 12:45] LABS: ANION GAP 17 mmol/L (8-16); CALCIUM, TOTAL 9.9 mg/dL (8.8-10.5); CARBON DIOXIDE 22 mmol/L (22-29); CHLORIDE 103 mmol/L (98-107); CREATININE 0.92 mg/dL (0.60-1.30); GLOMERULAR FILTR. RATE CALC > 60 mL/min (>60); GLUCOSE,RANDOM 118 mg/dL (70-110); POTASSIUM 3.1 mmol/L (3.5-5.1); SODIUM SERUM 142 mmol/L (136-145); UREA NITROGEN, BLOOD 10 mg/dL (7-18)
[2019-09-20 13:00] LABS: ALANINE AMINOTRANSFERASE 17 U/L (12-78); ALBUMIN 4.2 g/dL (3.4-5.0); ALKALINE PHOSPHATASE 123 U/L (46-116); ASPARTATE AMINOTRANSFERASE 17 U/L (15-37); BILIRUBIN,TOTAL 0.6 mg/dL (0.1-1.0); TOTAL PROTEIN, SERUM 8.1 g/dL (6.4-8.2)
[2019-09-20] MEDS: ALBUTEROL SULFATE 5 MG/ML 20 ML NEB SOLN [BULK] NEB ONE ×2 (13:22→13:30)
[2019-09-20] MEDS: IPRATROPIUM BROMIDE 0.5 MG/2.5 ML NEB SOLUTION NEB ONE ×2 (13:22→13:30)
[2019-09-20] MEDS ORDERED: DEXTROSE 50%-WATER 25 GM/50 ML SYRINGE IVP PRN (13:45)
[2019-09-20] MEDS ORDERED: POTASSIUM CHL 10 MEQ/WATER 50 ML IV PRN (13:45)
[2019-09-20] MEDS ORDERED: 0.9% SODIUM CHLORIDE 10 ML SYRINGE IVP PRN (13:45)
[2019-09-20] MEDS ORDERED: POTASSIUM CHLORIDE 20 MEQ ER TABLET PO PRN (13:45)
[2019-09-20] MEDS ORDERED: ONDANSETRON HCL 4 MG/2 ML VIAL IVP PRN (13:45)
[2019-09-20] MEDS ORDERED: MAGNESIUM HYDROXIDE SUSPENSION 30 ML UDCUP PO PRN (13:45)
[2019-09-20] MEDS ORDERED: ACETAMINOPHEN 325 MG TABLET PO PRN (13:45)
[2019-09-20] MEDS ORDERED: POTASSIUM CHLORIDE 20 MEQ ER TABLET PO ONE (13:45)
[2019-09-20] MEDS: ALBUTEROL SULFATE 2.5 MG/0.5 ML NEB SOLUTION NEB SCH ×2 (14:00→20:30)
[2019-09-20] MEDS: IPRATROPIUM BROMIDE 0.5 MG/2.5 ML NEB SOLUTION NEB SCH ×2 (14:00→20:30)
[2019-09-20] MEDS ORDERED: BENZONATATE 100 MG CAPSULE PO PRN (14:00)
[2019-09-20] MEDS: AZITHROMYCIN 500 MG/NS 250 ML IV SCH (14:28)
[2019-09-20] MEDS: OXYGEN THERAPY IH SCH ×2 (14:48→20:00)
[2019-09-20 16:33] VITALS: BP 116/44
[2019-09-20] MEDS: HEPARIN SODIUM,PORCINE 5,000 UNITS/ML VIAL SQ SCH (17:02)
[2019-09-20] MEDS: MethylPREDNISolone SOD SUCC 125 MG/2 ML VIAL IVP SCH (19:43)
[2019-09-20 19:44] VITALS: BP 119/58
[2019-09-20] MEDS: DOCUSATE SODIUM 100 MG CAPSULE PO SCH (21:45)
[2019-09-20] MEDS: INSULIN LISPRO 100 UNITS/ML SQ PRN (21:51)
[2019-09-20 23:27] VITALS: BP 152/79
[2019-09-21] MEDS: HEPARIN SODIUM,PORCINE 5,000 UNITS/ML VIAL SQ SCH ×3 (01:07→16:02)
[2019-09-21] MEDS: MethylPREDNISolone SOD SUCC 125 MG/2 ML VIAL IVP SCH ×4 (01:08→22:05)
[2019-09-21] MEDS: ALBUTEROL SULFATE 2.5 MG/0.5 ML NEB SOLUTION NEB SCH ×2 (02:51→08:10)
[2019-09-21] MEDS: IPRATROPIUM BROMIDE 0.5 MG/2.5 ML NEB SOLUTION NEB SCH ×2 (02:51→08:09)
[2019-09-21 04:41] VITALS: BP 123/59
[2019-09-21 04:44] LABS: GLUCOMETER DEV NAME(LOC) 5N.1; GLUCOSE,POINT OF CARE 184 MG/DL (70-110)
[2019-09-21] MEDS: INSULIN LISPRO 100 UNITS/ML SQ PRN (05:37)
[2019-09-21 06:20] LABS: BASOPHILS % (AUTO) 0.9 % (0.0-2.0); EOSINOPHILS % (AUTO) 0 % (1.0-6.0); HEMATOCRIT 34.6 % (36-46); HEMOGLOBIN 11.3 g/dL (12.0-16.0); LYMPHOCYTES # (AUTO) 1.1 K/uL (1.0-4.8); LYMPHOCYTES % (AUTO) 11.7 % (22.0-44.0); MEAN CORPUSCULAR HEMOGLOBIN 27.9 pg (26.0-34.0); MEAN CORPUSCULAR HGB CONC 32.5 G/dL (31.0-37.0); MEAN CORPUSCULAR VOLUME 86 fL (80-100); MONOCYTES # (AUTO) 0.1 K/uL (0.1-1.0); MONOCYTES % (AUTO) 0.6 % (2.0-9.0); NEUTROPHILS # (AUTO) 7.8 K/uL (1.8-7.7); PLATELET COUNT (AUTO) 376 K/uL (150-450); RED BLOOD CELL COUNT(AUTO) 4.04 MIL/uL (4.00-5.20); RED CELL DISTRIBUTION WIDTH 13.3 % (11.5-14.5)
[2019-09-21 06:27] LABS: GLUCOMETER DEV NAME(LOC) 5N.1; GLUCOSE,POINT OF CARE 145 MG/DL (70-110)
[2019-09-21 06:41] LABS: ALANINE AMINOTRANSFERASE 18 U/L (12-78); ALBUMIN 3.5 g/dL (3.4-5.0); ALKALINE PHOSPHATASE 102 U/L (46-116); ANION GAP 10 mmol/L (8-16); ASPARTATE AMINOTRANSFERASE 11 U/L (15-37); BILIRUBIN,TOTAL 0.5 mg/dL (0.1-1.0); CALCIUM, TOTAL 9.5 mg/dL (8.8-10.5); CARBON DIOXIDE 23 mmol/L (22-29); CHLORIDE 106 mmol/L (98-107); CREATININE 0.86 mg/dL (0.60-1.30); GLOMERULAR FILTR. RATE CALC > 60 mL/min (>60); GLUCOSE,RANDOM 159 mg/dL (70-110); POTASSIUM 3.5 mmol/L (3.5-5.1); SODIUM SERUM 139 mmol/L (136-145); TOTAL PROTEIN, SERUM 7.1 g/dL (6.4-8.2); UREA NITROGEN, BLOOD 14 mg/dL (7-18)
[2019-09-21 07:05] LABS: NEUTROPHILS % (AUTO) 86.8 % (40.0-70.0)
[2019-09-21 08:10] VITALS: BP 128/71
[2019-09-21] MEDS: ACETAMINOPHEN 325 MG TABLET PO PRN ×2 (09:00→16:03)
[2019-09-21] MEDS: DOCUSATE SODIUM 100 MG CAPSULE PO SCH ×2 (09:02→22:05)
[2019-09-21] MEDS: FAMOTIDINE 20 MG TABLET PO SCH (09:02)
[2019-09-21] MEDS: MONTELUKAST SODIUM 10 MG TABLET PO SCH (09:02)
[2019-09-21] MEDS: OXYGEN THERAPY IH SCH ×2 (09:04→21:30)
[2019-09-21 10:50] VITALS: BP 132/70
[2019-09-21] MEDS: AZITHROMYCIN 500 MG/NS 250 ML IV SCH (14:49)
[2019-09-21] MEDS ORDERED: SODIUM CHLORIDE 0.9% 250 ML IV ONE (15:13)
[2019-09-21 16:41] VITALS: BP 124/64
[2019-09-21 20:14] VITALS: BP 134/70
[2019-09-21] MEDS: BUDESONIDE 0.5 MG/2 ML NEB SOLUTION NEB SCH (21:29)
[2019-09-21] MEDS: ALBUTEROL SULFATE 2.5 MG/0.5 ML NEB SOLUTION NEB PRN (21:30)
[2019-09-21] MEDS: IPRATROPIUM BROMIDE 0.5 MG/2.5 ML NEB SOLUTION NEB PRN (21:30)
[2019-09-21] MEDS ORDERED: BENZONATATE 100 MG CAPSULE PO PRN (22:00)
[2019-09-21] MEDS: HYDROCODONE/ACETAMINOPHEN 5-325 MG TABLET PO PRN (22:59)
[2019-09-22 00:16] VITALS: BP 144/72
[2019-09-22] MEDS: MethylPREDNISolone SOD SUCC 125 MG/2 ML VIAL IVP SCH ×5 (00:16→22:49)
[2019-09-22 04:56] VITALS: BP 146/81
[2019-09-22 08:14] VITALS: BP 124/80
[2019-09-22] MEDS: MONTELUKAST SODIUM 10 MG TABLET PO SCH (08:42)
[2019-09-22] MEDS: FAMOTIDINE 20 MG TABLET PO SCH (08:42)
[2019-09-22] MEDS: DOCUSATE SODIUM 100 MG CAPSULE PO SCH ×2 (08:43→22:48)
[2019-09-22] MEDS: HYDROCODONE/ACETAMINOPHEN 5-325 MG TABLET PO PRN ×3 (08:43→23:00)
[2019-09-22] MEDS: HEPARIN SODIUM,PORCINE 5,000 UNITS/ML VIAL SQ SCH ×4 (08:43→22:49)
[2019-09-22] MEDS: OXYGEN THERAPY IH SCH ×2 (08:52→17:04)
[2019-09-22] MEDS: BUDESONIDE 0.5 MG/2 ML NEB SOLUTION NEB SCH ×2 (08:52→21:46)
[2019-09-22] MEDS: INSULIN LISPRO 100 UNITS/ML SQ PRN ×2 (11:46→17:05)
[2019-09-22 12:33] VITALS: BP 132/78
[2019-09-22 16:04] VITALS: BP 128/69
[2019-09-22] MEDS: ALBUTEROL SULFATE 2.5 MG/0.5 ML NEB SOLUTION NEB PRN ×2 (16:23→21:47)
[2019-09-22] MEDS: IPRATROPIUM BROMIDE 0.5 MG/2.5 ML NEB SOLUTION NEB PRN ×2 (16:23→21:46)
[2019-09-22 17:04] LABS: GLUCOMETER DEV NAME(LOC) 5S.2A; GLUCOSE,POINT OF CARE 119 MG/DL (70-110)
[2019-09-22 17:04] LABS: GLUCOMETER DEV NAME(LOC) 5S.2A; GLUCOSE,POINT OF CARE 118 MG/DL (70-110)
[2019-09-22] MEDS ORDERED: ALBU8HFA IH (18:17)
[2019-09-22] MEDS ORDERED: BECL10.62 IH (18:17)
[2019-09-22] MEDS ORDERED: LOSA50TA64 PO (18:17)
[2019-09-22] MEDS ORDERED: IPRAHFA IH (18:18)
[2019-09-22 20:25] VITALS: BP 141/84
[2019-09-22] MEDS: AZITHROMYCIN 500 MG/NS 250 ML IV SCH (22:48)
[2019-09-22 23:14] LABS: GLUCOMETER DEV NAME(LOC) 5N.1; GLUCOSE,POINT OF CARE 122 MG/DL (70-110)
[2019-09-22 23:14] LABS: GLUCOMETER DEV NAME(LOC) 5N.1; GLUCOSE,POINT OF CARE 103 MG/DL (70-110)
[2019-09-22 23:14] LABS: GLUCOMETER DEV NAME(LOC) 5N.1; GLUCOSE,POINT OF CARE 128 MG/DL (70-110)
[2019-09-23 00:18] VITALS: BP 128/71
[2019-09-23 05:30] VITALS: BP 155/75
[2019-09-23] MEDS: MethylPREDNISolone SOD SUCC 125 MG/2 ML VIAL IVP SCH (06:27)
[2019-09-23] MEDS: HYDROCODONE/ACETAMINOPHEN 5-325 MG TABLET PO PRN ×2 (07:52→19:37)
[2019-09-23 07:53] VITALS: BP 147/77
[2019-09-23] MEDS: DOCUSATE SODIUM 100 MG CAPSULE PO SCH ×2 (07:53→19:37)
[2019-09-23] MEDS: FAMOTIDINE 20 MG TABLET PO SCH (07:53)
[2019-09-23] MEDS: HEPARIN SODIUM,PORCINE 5,000 UNITS/ML VIAL SQ SCH ×3 (07:54→23:38)
[2019-09-23] MEDS: MONTELUKAST SODIUM 10 MG TABLET PO SCH (07:54)
[2019-09-23] MEDS: OXYGEN THERAPY IH SCH ×2 (08:00→19:38)
[2019-09-23] MEDS: BUDESONIDE 0.5 MG/2 ML NEB SOLUTION NEB SCH ×2 (08:08→20:00)
[2019-09-23 11:41] VITALS: BP 121/69
[2019-09-23] MEDS: INSULIN LISPRO 100 UNITS/ML SQ PRN ×2 (11:51→16:52)
[2019-09-23] MEDS ORDERED: MethylPREDNISolone SOD SUCC 125 MG/2 ML VIAL IVP SCH (12:00)
[2019-09-23] MEDS ORDERED: PredniSONE 20 MG TABLET PO SCH (15:45)
[2019-09-23 16:26] VITALS: BP 144/81
[2019-09-23] MEDS: AZITHROMYCIN 500 MG/NS 250 ML IV SCH (19:38)
[2019-09-23] MEDS: ALBUTEROL SULFATE 2.5 MG/0.5 ML NEB SOLUTION NEB PRN (20:00)
[2019-09-23] MEDS: IPRATROPIUM BROMIDE 0.5 MG/2.5 ML NEB SOLUTION NEB PRN (20:00)
[2019-09-23 21:14] VITALS: BP 151/79
[2019-09-24 00:55] VITALS: BP 129/64
[2019-09-24] MEDS ORDERED: SODIUM CHLORIDE 0.9% 250 ML IV ONE (01:46)
[2019-09-24 04:15] VITALS: BP 141/74
[2019-09-24] MEDS: ALBUTEROL SULFATE 2.5 MG/0.5 ML NEB SOLUTION NEB PRN ×2 (05:45→20:06)
[2019-09-24] MEDS: IPRATROPIUM BROMIDE 0.5 MG/2.5 ML NEB SOLUTION NEB PRN (05:45)
[2019-09-24 07:02] LABS: GLUCOMETER DEV NAME(LOC) 5S.1; GLUCOSE,POINT OF CARE 112 MG/DL (70-110)
[2019-09-24 07:02] LABS: GLUCOMETER DEV NAME(LOC) 5S.1; GLUCOSE,POINT OF CARE 114 MG/DL (70-110)
[2019-09-24 07:02] LABS: GLUCOMETER DEV NAME(LOC) 5S.1; GLUCOSE,POINT OF CARE 152 MG/DL (70-110)
[2019-09-24 07:02] LABS: GLUCOMETER DEV NAME(LOC) 5S.1; GLUCOSE,POINT OF CARE 104 MG/DL (70-110)
[2019-09-24 07:03] LABS: GLUCOMETER DEV NAME(LOC) 5S.1; GLUCOSE,POINT OF CARE 134 MG/DL (70-110)
[2019-09-24] MEDS: PredniSONE 20 MG TABLET PO SCH (08:01)
[2019-09-24] MEDS: HYDROCODONE/ACETAMINOPHEN 5-325 MG TABLET PO PRN ×2 (08:01→17:54)
[2019-09-24] MEDS: DOCUSATE SODIUM 100 MG CAPSULE PO SCH ×2 (08:02→21:02)
[2019-09-24] MEDS: MONTELUKAST SODIUM 10 MG TABLET PO SCH (08:02)
[2019-09-24] MEDS: HEPARIN SODIUM,PORCINE 5,000 UNITS/ML VIAL SQ SCH ×2 (08:02→15:43)
[2019-09-24] MEDS: OXYGEN THERAPY IH SCH (08:02)
[2019-09-24] MEDS: FAMOTIDINE 20 MG TABLET PO SCH (08:02)
[2019-09-24 08:21] VITALS: BP 118/71
[2019-09-24] MEDS: BUDESONIDE 0.5 MG/2 ML NEB SOLUTION NEB SCH ×2 (09:18→20:06)
[2019-09-24 11:39] VITALS: BP 133/61
[2019-09-24 12:14] LABS: BASOPHILS % (AUTO) 0.4 % (0.0-2.0); EOSINOPHILS % (AUTO) 0.1 % (1.0-6.0); HEMATOCRIT 38.6 % (36-46); HEMOGLOBIN 12.5 g/dL (12.0-16.0); LYMPHOCYTES # (AUTO) 1.4 K/uL (1.0-4.8); LYMPHOCYTES % (AUTO) 15.5 % (22.0-44.0); MEAN CORPUSCULAR HEMOGLOBIN 27.9 pg (26.0-34.0); MEAN CORPUSCULAR HGB CONC 32.3 G/dL (31.0-37.0); MEAN CORPUSCULAR VOLUME 86 fL (80-100); MONOCYTES # (AUTO) 0.4 K/uL (0.1-1.0); MONOCYTES % (AUTO) 5.1 % (2.0-9.0); NEUTROPHILS # (AUTO) 6.9 K/uL (1.8-7.7); NEUTROPHILS % (AUTO) 78.9 % (40.0-70.0); PLATELET COUNT (AUTO) 365 K/uL (150-450); RED BLOOD CELL COUNT(AUTO) 4.47 MIL/uL (4.00-5.20); RED CELL DISTRIBUTION WIDTH 13.5 % (11.5-14.5)
[2019-09-24 12:23] LABS: ANION GAP 5 mmol/L (8-16); CARBON DIOXIDE 29 mmol/L (22-29); CHLORIDE 105 mmol/L (98-107); CREATININE 0.95 mg/dL (0.60-1.30); GLOMERULAR FILTR. RATE CALC > 60 mL/min (>60); GLUCOSE,RANDOM 121 mg/dL (70-110); POTASSIUM 4.2 mmol/L (3.5-5.1); SODIUM SERUM 139 mmol/L (136-145); UREA NITROGEN, BLOOD 24 mg/dL (7-18)
[2019-09-24 12:29] LABS: ALANINE AMINOTRANSFERASE 20 U/L (12-78); ALBUMIN 3.5 g/dL (3.4-5.0); ALKALINE PHOSPHATASE 89 U/L (46-116); ASPARTATE AMINOTRANSFERASE 9 U/L (15-37); BILIRUBIN,TOTAL 0.4 mg/dL (0.1-1.0); TOTAL PROTEIN, SERUM 7.4 g/dL (6.4-8.2)
[2019-09-24 16:36] VITALS: BP 133/75
[2019-09-24] MEDS ORDERED: BENZ100C68 PO (17:06)
[2019-09-24 20:02] VITALS: BP 106/80
[2019-09-24] MEDS ORDERED: 0.9% SODIUM CHLORIDE 5 ML NEB SOLUTION NEB ONE (20:03)
[2019-09-24] MEDS: AZITHROMYCIN 500 MG/NS 250 ML IV SCH (21:02)
[2019-09-24] MEDS: INSULIN LISPRO 100 UNITS/ML SQ PRN (21:04)
[2019-09-25] MEDS: HEPARIN SODIUM,PORCINE 5,000 UNITS/ML VIAL SQ SCH ×4 (00:13→23:45)
[2019-09-25 00:19] VITALS: BP 116/56
[2019-09-25 04:12] VITALS: BP 152/73
[2019-09-25 07:50] VITALS: BP 102/71
[2019-09-25 08:02] LABS: GLUCOMETER DEV NAME(LOC) 5S.2A; GLUCOSE,POINT OF CARE 178 MG/DL (70-110)
[2019-09-25 08:02] LABS: GLUCOMETER DEV NAME(LOC) 5S.1; GLUCOSE,POINT OF CARE 73 MG/DL (70-110)
[2019-09-25 08:02] LABS: GLUCOMETER DEV NAME(LOC) 5S.2A; GLUCOSE,POINT OF CARE 86 MG/DL (70-110)
[2019-09-25 08:02] LABS: GLUCOMETER DEV NAME(LOC) 5S.2A; GLUCOSE,POINT OF CARE 75 MG/DL (70-110)
[2019-09-25] MEDS: MONTELUKAST SODIUM 10 MG TABLET PO SCH (08:59)
[2019-09-25] MEDS: FAMOTIDINE 20 MG TABLET PO SCH (08:59)
[2019-09-25] MEDS: PredniSONE 20 MG TABLET PO SCH (08:59)
[2019-09-25] MEDS: DOCUSATE SODIUM 100 MG CAPSULE PO SCH ×2 (08:59→19:44)
[2019-09-25] MEDS: HYDROCODONE/ACETAMINOPHEN 5-325 MG TABLET PO PRN ×2 (09:02→19:44)
[2019-09-25] MEDS: OXYGEN THERAPY IH SCH (09:05)
[2019-09-25] MEDS: BUDESONIDE 0.5 MG/2 ML NEB SOLUTION NEB SCH ×2 (09:15→20:02)
[2019-09-25 11:43] VITALS: BP 118/73
[2019-09-25] MEDS: IPRATROPIUM BROMIDE 0.5 MG/2.5 ML NEB SOLUTION NEB PRN (14:05)
[2019-09-25] MEDS: ALBUTEROL SULFATE 2.5 MG/0.5 ML NEB SOLUTION NEB PRN ×2 (14:05→20:02)
[2019-09-25 16:27] VITALS: BP 132/65
[2019-09-25] MEDS: INSULIN LISPRO 100 UNITS/ML SQ PRN (17:26)
[2019-09-25 17:33] LABS: GLUCOMETER DEV NAME(LOC) 5S.1; GLUCOSE,POINT OF CARE 145 MG/DL (70-110)
[2019-09-25 19:54] VITALS: BP 125/60
[2019-09-25] MEDS ORDERED: 0.9% SODIUM CHLORIDE 5 ML NEB SOLUTION NEB ONE (19:55)
[2019-09-25 20:23] LABS: GLUCOMETER DEV NAME(LOC) 5S.2A; GLUCOSE,POINT OF CARE 96 MG/DL (70-110)
[2019-09-26 00:07] VITALS: BP 135/74
[2019-09-26 04:34] VITALS: BP 140/78
[2019-09-26 06:39] LABS: GLUCOMETER DEV NAME(LOC) 5S.1; GLUCOSE,POINT OF CARE 85 MG/DL (70-110)
[2019-09-26 06:39] LABS: GLUCOMETER DEV NAME(LOC) 5S.1; GLUCOSE,POINT OF CARE 137 MG/DL (70-110)
[2019-09-26] MEDS: HYDROCODONE/ACETAMINOPHEN 5-325 MG TABLET PO PRN (07:02)
[2019-09-26 07:21] VITALS: BP 124/71
[2019-09-26] MEDS: OXYGEN THERAPY IH SCH (08:00)
[2019-09-26] MEDS: BUDESONIDE 0.5 MG/2 ML NEB SOLUTION NEB SCH (08:49)
[2019-09-26] MEDS: ALBUTEROL SULFATE 2.5 MG/0.5 ML NEB SOLUTION NEB PRN ×2 (08:50→16:11)
[2019-09-26] MEDS: IPRATROPIUM BROMIDE 0.5 MG/2.5 ML NEB SOLUTION NEB PRN ×2 (08:50→16:11)
[2019-09-26] MEDS: HEPARIN SODIUM,PORCINE 5,000 UNITS/ML VIAL SQ SCH (09:50)
[2019-09-26] MEDS: FAMOTIDINE 20 MG TABLET PO SCH (09:50)
[2019-09-26] MEDS: DOCUSATE SODIUM 100 MG CAPSULE PO SCH (09:50)
[2019-09-26] MEDS: PredniSONE 20 MG TABLET PO SCH (09:50)
[2019-09-26] MEDS: MONTELUKAST SODIUM 10 MG TABLET PO SCH (09:50)
[2019-09-26 11:10] VITALS: BP 130/74
[2019-09-26 15:30] VITALS: BP 134/78
[2019-09-26 17:07] LABS: GLUCOMETER DEV NAME(LOC) 5S.1; GLUCOSE,POINT OF CARE 124 MG/DL (70-110)
== END 2019-09-26 17:50 | disposition home or self-care (01) | DRG 133 ==
LOC: EMS 11:21 → AHU 15:28 → 5S 16:10
PROVIDERS: ADMIT Internal Medicine; ATTEND Internal Medicine
DX: J96.00 Acute respiratory failure, unspecified whether with hypoxia or hypercapnia (principal); E11.22 Type 2 diabetes mellitus with diabetic chronic kidney disease; J44.0 Chronic obstructive pulmonary disease with (acute) lower respiratory infection; I13.0 Hypertensive heart and chronic kidney disease with heart failure and stage 1 through stage 4 chronic kidney disease, or unspecified chronic kidney disease; I50.30 Unspecified diastolic (congestive) heart failure; J45.901 Unspecified asthma with (acute) exacerbation; J44.1 Chronic obstructive pulmonary disease with (acute) exacerbation; J20.9 Acute bronchitis, unspecified; F31.9 Bipolar disorder, unspecified; N18.9 Chronic kidney disease, unspecified; Z82.49 Family history of ischemic heart disease and other diseases of the circulatory system; Z83.3 Family history of diabetes mellitus; Z87.891 Personal history of nicotine dependence; Z79.899 Other long term (current) drug therapy
CPT/HCPCS: 73503; 87081; 94640; 94644; 94645; 97162; 97166; 97535; J0456; J1644; J2930; J3490; J7050; J7060

== ENCOUNTER → 2019-09-20 | Emergency (ER) | payer MEDICAID ==
[~2019-09-20] MED LIST changes: +ALBU8HFA IH; +AUD NEB; +BECL10.62 IH; +BENZ100C68 PO; +BENZ200C53 PO; -GLIP5 PO; +IPRAHFA IH; +LOSA50TA64 PO; +METO5TAB87 PO; +OMEP20 PO; -THEO200T39 PO; +[UNRECOGNIZED DRUG - CODE] PO
[2019-09-22 17:04] LABS: GLUCOMETER DEV NAME(LOC) 5S.2A; GLUCOSE,POINT OF CARE 120 MG/DL (70-110)
== END | disposition home or self-care (01) ==
LOC: EMS 11:26
DX: J45.909 Unspecified asthma, uncomplicated (principal); Z53.21 Procedure and treatment not carried out due to patient leaving prior to being seen by health care provider